=== PATIENT | female | born 1980 | race Two or more races ===

== ENCOUNTER 2019-10-10 14:32 | Outpatient (CLI) | payer OTHER ==
--- NOTE | 2019-10-11 22:20 | SLEEP CARE CONSULTATION ---
Information from patient questionnaire entered by Peg Soler. I have reviewed and concur with the information entered by Peg Soler. This document represents the service I personally performed and the decisions made by me, Whitley Tang MD, [facility]. History of Present Illness Service Date and Time: 10/10/2019 1432 Reason for Visit: New patient, Previously diagnosed sleep apnea, sleep apnea on CPAP therapy Chief Complaint: reports: Insomnia, Excessive daytime sleepiness, Observed pauses in breathing Duration of Symptoms: 16 years plus Usual bedtime: 12 am Time it takes to fall asleep: 1-2 hours Snores at night: Yes Observed to quit breathing while asleep: Yes Sleeps alone due to snoring: No Number of times waking at night: 2-4 Reasons for waking at night: reports: Choking, Pain, Other (discomfort) Toss, Turn, or Twitch while sleeping: Yes Recalls having dreams: Yes Usually gets out of bed at: 10 am Feels refreshed in the morning: No Morning headache: No Sleepy or fatigued during the day: Yes Ever fallen asleep while driving: Yes Takes day naps: No Dreams during day naps: Yes Prior sleep studies: Yes Year and Where: 2003 and 2000 - [facility] in [place] Additional HPI information: I had the pleasure of seeing Ms. Lopez today regarding obstructive sleep apnea-hypopnea. As you know, she is a 39 year old lady who was diagnosed with severe obstructive sleep apnea-hypopnea in 2000. She underwent uvulopalatopharyngoplasty and tonsillectomy. She was retested in 2003 and was told that she still had mild obstructive sleep apnea-hypopnea. She was prescribed a CPAP which she used consistently at first with good results but has not used it for at least a decade now. She continues to snore lightly. Her has not seen her quit breathing (he uses a CPAP too). She complains of insomnia where it takes her 1 2 hours to fall asleep at the beginning of the night. 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 Patient is and lives in [place]. Have you smoked in the past 12 months: Yes Cigarettes per day (20/pack): 5 Years of smokin Quit date: 09/06/19 Smoking Pack Years: 3.4 Alcohol use: Yes Alcohol amount and frequency: 2 drinks per week Caffeine use: Yes Caffeine amount and frequency: 1 coffee per day Family History Family history of sleep disordered breathing: Yes (father and grandfather) Allergies and Home Medications Drug allergies reviewed: Yes Home medication list reviewed: Yes Review of Systems Weight gain over past 5 years: 40 Cardiovascular: denies: high blood pressure, palpitations, chest pain, irregular heart rate or pulse, leg or foot swelling, have to sleep sitting up, other Respiratory: denies: shortness of breath, wheeze, sputum production, chronic cough, other Gastrointestinal: reports: other (constipation) Urinary: reports: urgency Neurological: denies: headaches, seizure, head trauma, disorientation, speech dysfunction, gait or balance problems, fainting or unconsciousness, other Psychiatric: reports: Attention Deficit Hyperactivity, anxiety, depression, mood disorder, other (PTSD, paranoia) Ear/Nose/Throat: reports: dry mouth/throat Endocrine: reports: thyroid disease, sluggishness, excessive thirst Musculoskeletal: reports: joint pain, neck pain, back pain, joint swelling, muscle pain or cramping Immunologic: denies: sneezing, rash, itching, allergies to food or environment, other Physical Exam Vital signs obtained and entered by: Detailed physical exam is deferred because the Coronavirus epidemic. Impression and Plan IMPRESSION: 1. Obstructive Sleep Apnea-Hypopnea Syndrome, as previously diagnosed, partially treated with uvulopalatopharyngoplasty. She continues to have symptoms of obstructive sleep apnea-hypopnea. She has gained 50 lbs since surgery. Suboxone, on the other hand, can cause central sleep apnea. She is willing to use CPAP again if necessary. Therefore, I will order another in-laboratory polysomnography. 2. Insomnia, due to in part to excessive time spent in bed of 10 hours (bedtime at midnight and wakeup time at 10 am). She also has underlying psychiatric disorders and chronic pain that can very well contribute to her insomnia. She was advised to not go to bed until 2 am. Plan: 1. Schedule polysomnography and return in 1 to 2 weeks after the study to discuss result and initiate therapy. 2. Maintain a regular wake up time and spend no more than 8 hours in bed at night. Avoid naps. 3. Avoid alcohol, sedative and muscle relaxant around bedtime. 4. Attempt to lose weight. Visit Type: In Office Time Spent with Patient (minutes): 15 Provider Statement: I spent 100% of the Face to Face Visit with the patient with greater than 50% spent counseling the patient and coordination of care.
== END 2019-10-10 14:33 | disposition home or self-care (01) ==
LOC: SC 14:32
PROVIDERS: ATTEND Internal Medicine Pulmonary Disease
DX: G47.33 Obstructive sleep apnea (adult) (pediatric) (principal); G47.00 Insomnia, unspecified; E66.9 Obesity, unspecified
CPT/HCPCS: 99204; 99212

== ENCOUNTER 2019-11-01 20:43 | Outpatient (CLI) | payer OTHER | END 2019-11-01 20:44 | disposition home or self-care (01) | LOC: SC 20:43 | PROVIDERS: ATTEND Internal Medicine Pulmonary Disease | DX: G47.33 Obstructive sleep apnea (adult) (pediatric) (principal) | CPT/HCPCS: 95810 ==

== ENCOUNTER 2019-11-21 16:32 | Outpatient (CLI) | payer OTHER ==
--- NOTE | 2019-11-21 15:09 | SLEEP CARE CONSULTATION ---
Information from patient questionnaire entered by Pge Soler. I have reviewed and concur with the information entered by Peg Soler. This document represents the service I personally performed and the decisions made by me, Whitley Tang MD, [facility]. History of Present Illness Service Date and Time: 11/21/2019 1500 Initial [place] Sleepiness Scale score: 8 (in 2019) Additional HPI information: To minimize the risk of COVID-19 exposure, the patient has requested and consented to this telephone visit. The patient also agrees to having her insurance billed. HPI: Ms. Lopez was called for follow up of the sleep study she had on 11/01/2019. The polysomnography showed that the patient had slightly reduced sleep efficiency due to sleep onset insomnia. The sleep architecture was abnormal for sleep fragmentation and lack of REM sleep. Respiratory monitoring showed severe obstructive sleep apnea-hypopnea (AHI = 35.0) associated with frequent arousals, oxyhemoglobin desaturation and mild hypoxia (maria r oxygen saturation of 82%). The respiratory events occurred almost exclusively during supine sleep (supine AHI = 100.3; non-supine = 3.92). Snore was moderate in inte nsity. There was no significant periodic leg movement of sleep. Cardiac rhythm was normal sinus rhythm without significant arrhythmia. No abnormal behavior (parasomnia) observed during the night. The patient was informed of these findings. I explained to her the pathophysiology behind obstructive sleep apnea. We then spent quite a bit of time discussing different treatment options. For mild obstructive sleep apnea, surgery and oral appliance are alternatives to nasal CPAP therapy but in moderate or severe cases, nasal CPAP is the most effective and reliable treatment. After some discussion, she opted to use CPAP again. The patient still has an old machine that is over 10 yeas old. She already had uvulopalatopharyngoplasty and tonsillectomy. Sleep Study - Results Type of Sleep Study: Polysomnography Prior sleep studies: Yes Year and Where: 2003 and 2000 - [facility] in [place] Allergies and Home Medications Drug allergies reviewed: Yes Home medication list reviewed: Yes Review of Systems Review of systems same as previous: Yes Impression and Plan IMPRESSION: 1. Obstructive Sleep Apnea-Hypopnea Syndrome, severe, associated with mild hypoxemia and sleep fragmentation. Obviously this is the cause of the patients symptoms of unrefreshed sleep, and excessive daytime sleepiness. As mentioned above, the patient will be return for a manual CPAP/BiPAP titration study. PLAN: 1. Schedule a manual CPAP/BiPAP titration study. 2. Attempt to lose weight. 3. Be careful when driving until her sleepiness resolves completely on nasal CPAP therapy. 4. Return for a follow up after the sleep study. Visit Type: Telehealth Video Video Type: REBIScan Patient Location: Home Location of Provider: Home Patient agrees and consents to this telehealth visit type: Yes Patient agrees to have their insurance billed: Yes Time Spent with Patient (minutes): 15 Provider Statement: I spent 100% of the Telehealth Video Call with the patient with greater than 50% spent counseling the patient and coordination of care.
== END 2019-11-21 16:33 | disposition home or self-care (01) ==
LOC: SC 16:32
PROVIDERS: ATTEND Internal Medicine Pulmonary Disease
DX: G47.33 Obstructive sleep apnea (adult) (pediatric) (principal)

== ENCOUNTER 2019-12-15 20:51 | Emergency (ER) | payer OTHER ==
--- NOTE | 2019-12-15 21:04 | ED Physician Documentation ---
PD HPI CHEST PAIN - Stated complaint Stated Complaint: CP - Chief complaint Chief Complaint: Cardiac - History obtained from History obtained from: Patient - History of Present Illness Timing - onset: How many days ago (4) Timing - details: Intermittant Pain level now: 2 Quality: Pain Location: Substernal Radiation: Other (does not radiate) Improved by: Nothing Worsened by: Other (no exacerbating factors) Associated symptoms: Shortness of air (mild), Palpitations. No: Diaphoresis, Vomiting, Cough Recently seen: Other (d/w PMD 4 days ago; symptoms thought to possibly be due to patient taking an extra dose of her levothyroxine at that time. She was also told to stop taking sulindac, chantrix, and BCP) - Additional information Additional information: c/o 4 days of substernal "chest discomfort and kind of an arrhythmia" (per patient). Symptoms started Wednesday but were mild and only at night, have become increasingly frequent during the week and episodic all day today. Episodes last minutes. Her description of the palpitations sound like skipped-beat sensation. There are no exacerbating nor ameliorating factors to these symptoms. Review of Systems Constitutional: reports: Fatigue. denies: Fever, Chills, Sweats Cardiac: reports: Chest pain / pressure, Palpitations. denies: Pedal edema, Calf pain Respiratory: reports: Dyspnea (mild, episodic). denies: Cough GI: reports: Reviewed and negative : denies: Now EGA Musculoskeletal: denies: Extremity swelling PD PAST MEDICAL HISTORY - Past Medical History Past Medical History: Yes Endocrine/Autoimmune: HyPOthyroidism - Past Surgical History Past Surgical History: Yes General: Other (thyroidectomy) HEENT: Tonsil/Adenoidectomy Other past surgical history: UPPP - Present Medications Home Medications: Ambulatory Orders Medication Instructions Recorded Confirmed Aripiprazole [Abilify] 2 mg PO DAILY 12/15/19 12/15/19 Buprenorphine HCl/Naloxone HCl 1 film SL DAILY 12/15/19 12/15/19 [Buprenorp-Nalox 8-2 mg Sl Film] Gabapentin 600 mg PO TID 12/15/19 12/15/19 Hydroxychloroquine Sulfate 200 mg PO DAILY 12/15/19 12/15/19 LORazepam [Ativan] 0.5 mg PO DAILY 12/15/19 12/15/19 Levothyroxine Sodium 50 mcg PO DAILY 12/15/19 12/15/19 [place] Carbonate 300 mg PO DAILY 12/15/19 12/15/19 Modafinil [Provigil] 100 mg PO DAILY 12/15/19 12/15/19 Prazosin HCl 2 mg PO DAILY 12/15/19 12/15/19 Propranolol HCl 20 mg PO DAILY 12/15/19 12/15/19 Sertraline HCl 100 mg PO DAILY 12/15/19 12/15/19 Tizanidine HCl 4 mg PO DAILY 12/15/19 12/15/19 Trazodone HCl 50 mg PO DAILY 12/15/19 12/15/19 - Allergies Allergies/Adverse Reactions: Allergies Allergy/AdvReac Type Severity Reaction Status Date / Time Penicillins Allergy Unknown Verified 12/15/19 21:03 - Living Situation Living Arrangement: reports: At home PD ED PE NORMAL - Vitals Vital signs reviewed: Yes - General General: Alert and oriented X 3, No acute distress, Well developed/nourished - HEENT HEENT: Moist mucous membranes - Neck Neck: Supple, no meningeal sign - Cardiac Cardiac: RRR, No murmur, No gallop, No rub - Respiratory Respiratory: No respiratory distress, Clear bilaterally - Abdomen Abdomen: Soft, Non tender - Derm Derm: Normal color, Warm and dry - Extremities Extremities: No edema Results - Vitals Vitals: Vital Signs - 24 hr 12/15/19 12/15/19 12/15/19 21:00 21:20 21:45 Temperature 36.2 C L Heart Rate 80 74 66 Respiratory 18 14 20 Rate Blood Pressure 125/85 H 126/79 121/65 O2 Saturation 100 100 100 12/15/19 12/15/19 12/15/19 22:12 22:35 23:50 Temperature Heart Rate 73 73 68 Respiratory 12 14 Rate Blood Pressure 132/87 H 138/89 H O2 Saturation 100 100 12/16/19 12/16/19 12/16/19 00:09 01:30 01:50 Temperature 36.7 C 36.7 C Heart Rate 69 75 78 Respiratory 15 16 17 Rate Blood Pressure 108/92 H 113/71 106/69 O2 Saturation 100 99 99 Oxygen O2 Source Room air - EKG (time done) No standard instances Rate: Rate (enter#) (66) Rhythm: NSR [place]: Normal Intervals: Normal VT QRS: Normal, Low voltage Ischemia: Normal ST segments - Labs Labs: Laboratory Tests 12/15/19 12/15/19 12/15/19 21:18 21:18 21:18 WBC 7.3 RBC 4.35 Hgb 12.4 Hct 38.4 MCV 88.3 MCH 28.5 MCHC 32.3 RDW 12.8 Plt Count 202 MPV 11.5 H Neut # (Auto) 4.4 Lymph # (Auto) 1.7 Lamar # (Auto) 0.6 Eos # (Auto) 0.4 Baso # (Auto) 0.0 Absolute Nucleated RBC 0.00 Nucleated RBC % 0.0 Sodium 138 Potassium 4.0 Chloride 99 L Carbon Dioxide 29 Anion Gap 10.0 BUN 12 Creatinine 1.2 H Estimated GFR (MDRD) 51 L Glucose 99 Calcium 9.0 Total Bilirubin 0.4 AST 19 ALT 21 Alkaline Phosphatase 37 L Troponin I High Sens 3.0 Total Protein 6.9 Albumin 3.5 Globulin 3.4 Albumin/Globulin Ratio 1.0 Lipase 47 TSH 12/15/19 21:18 WBC RBC Hgb Hct MCV MCH MCHC RDW Plt Count MPV Neut # (Auto) Lymph # (Auto) Lamar # (Auto) Eos # (Auto) Baso # (Auto) Absolute Nucleated RBC Nucleated RBC % Sodium Potassium Chloride Carbon Dioxide Anion Gap BUN Creatinine Estimated GFR (MDRD) Glucose Calcium Total Bilirubin AST ALT Alkaline Phosphatase Troponin I High Sens Total Protein Albumin Globulin Albumin/Globulin Ratio Lipase TSH 1.94 - Rads (name of study) chest xray Radiology: Prelim report reviewed, See rad report CT chest w/contrast (PE study) Radiology: Prelim report reviewed, See rad report PD MEDICAL DECISION MAKING - ED course Complexity details: reviewed results, re-evaluated patient, considered diffe rential, d/w patient ED course: On reevaluation, results reviewed with patient. It was on reevaluation that I ascertained from patient that she has antiphospholipid antibodies, possibly factor V deficiency; she says she has been told she is at risk of blood clots. She is not tachycardic, but she is on propranolol. Because of this information, CT chest with contrast (PE study) ordered. This study was negative for PE; small bilateral pleural effusions and trace pericardial effusion noted Departure - Departure Disposition: 01 Home, Self Care Clinical Impression: Chest pain Condition: Good Instructions: ED Chest Pain Atypical Unkn Cause Follow-Up: TENNILLE WANG PA-C [Primary Care Provider] - Discharge Date/Time: 12/16/19 01:54
[2019-12-15 21:25] LABS: BASOPHILS % (AUTO) 0.6 %; EOSINOPHILS # (AUTO) 0.4 10^3/uL (0.0-0.7); EOSINOPHILS % (AUTO) 6.1 %; HGB - HEMOGLOBIN 12.4 g/dL (12.0-16.0); LYMPHOCYTES # (AUTO) 1.7 10^3/uL (1.5-3.5); LYMPHOCYTES % (AUTO) 23.3 %; MEAN CORPUSCULAR HEMOGLOBIN 28.5 pg (27.0-31.0); MEAN CORPUSCULAR HGB CONC 32.3 g/dL (32.0-36.0); MEAN CORPUSCULAR VOLUME 88.3 fL (81.0-99.0); MEAN PLATELET VOLUME 11.5 fL (7.9-10.8); MONOCYTES # (AUTO) 0.6 10^3/uL (0.0-1.0); MONOCYTES % (AUTO) 8.4 %; NEUTROPHILS # (AUTO) 4.4 10^3/uL (1.5-6.6); PLT - PLATELET COUNT 202 10^3/uL (130-450); RED BLOOD COUNT 4.35 10^6/uL (4.20-5.40); RED CELL DISTRIBUTION WIDTH 12.8 % (12.0-15.0); WHITE BLOOD COUNT 7.3 x10^3/uL (4.8-10.8)
[2019-12-15 21:38] LABS: ALBUMIN 3.5 g/dL (3.2-5.5); BILIRUBIN,TOTAL 0.4 mg/dL (0.2-1.0); CREATININE 1.2 mg/dL (0.4-1.0); TOTAL PROTEIN 6.9 g/dL (6.7-8.2)
--- NOTE | 2019-12-15 21:41 | XRAY Report ---
PROCEDURE: Chest 2 View X-Ray INDICATIONS: chest pain TECHNIQUE: 2 view(s) of the chest. COMPARISON: None. FINDINGS: Surgical changes and devices: None. Lungs and pleura: No pleural effusions or pneumothorax. Lungs are clear. Mediastinum: Mediastinal contours are normal. Heart size is normal. Bones and chest wall: No suspicious bony abnormalities. Soft tissues appear unremarkable. IMPRESSION: No acute cardiopulmonary findings. Reviewed by: Tara Elkins MD on 12/15/2019 9:40 PM PDT Approved by: Tara Elkins MD on 12/15/2019 9:40 PM PDT Station ID: [id number]
[2019-12-15] MEDS ORDERED: LORazepam 2 MG/ML VIAL IVP STA (22:50)
[2019-12-15] MEDS ORDERED: IOVERSOL 320 100 ML VIAL IVP ONE (23:20)
[2019-12-16] MEDS ORDERED: IOVERSOL 320 100 ML VIAL IVP ONE
[2019-12-16 01:55] VITALS: BP 106/69
--- NOTE | 2019-12-16 07:50 | CT Report ---
PROCEDURE: CHEST W/WO INDICATIONS: chest pain CONTRAST: IV CONTRAST: Optiray 320 ml: 75 PO CONTRAST: *NO PO CONTRAST TECHNIQUE: Noncontrast 5 mm thick sections acquired from the pulmonary apices to the posterior costophrenic angl es. After the administration of intravenous contrast, 5 mm thick sections acquired from the pulmonar y apices to the posterior costophrenic angles. 7 mm thick coronal MIP reformats were acquired. For radiation dose reduction, the following was used: automated exposure control, adjustment of mA and/o r kV according to patient size. COMPARISON: Chest radiograph from earlier same day. FINDINGS: Image quality: Excellent. Lungs and pleura: No acute air space opacities. Small bilateral pleural effusions with associated c ompressive atelectasis. No pneumothorax seen. Central and peripheral airways are patent and normal in caliber. Mediastinum: Heart size is normal. Trace pericardial effusion likely physiologic. No mediastinal or hilar adenopathy by size criteria. Thoracic aorta and central pulmonary arteries are normal in size . Esophagus is normal in caliber. No hiatal hernia. Bones and chest wall: No suspicious bony lesions. No acute vertebral body compression fractures. N o axillary or supraclavicular adenopathy by size criteria. Thyroid gland is unremarkable. Abdomen: Visualized upper abdominal solid organs appear normal. Upper abdominal bowel loops are nor mal in caliber. IMPRESSION: 1. No acute pulmonary emboli. No evidence for acute right-sided heart strain. 2. Trace pericardial effusion, likely physiologic. 3. Very small bilateral pleural effusions with associated atelectasis. No significant discrepancy with initial interpretation by overnight radiologist. Reviewed by: Ben Trivedi MD on 12/16/2019 7:49 AM PDT Approved by: Ben Trivedi MD on 12/16/2019 7:49 AM PDT Station ID: [id number]
== END 2019-12-16 01:54 | disposition home or self-care (01) ==
LOC: ED 20:51
DX: R07.89 Other chest pain (principal); R00.2 Palpitations
CPT/HCPCS: 36415; 71046; 71270; 83690; 84484; 93005; 96374; 99284; J2060; Q9967; 80053; 84443; 85025

== ENCOUNTER 2020-05-27 13:11 | Outpatient (CLI) | payer OTHER ==
--- NOTE | 2020-05-27 14:10 | SLEEP CARE CONSULTATION ---
Information from patient questionnaire entered by Peg Soler. I have reviewed and concur with the information entered by Peg Soler. This document represents the service I personally performed and the decisions made by me, Whitley Tang MD, [facility]. History of Present Illness Service Date and Time: 05/27/2020 1311 Previous diagnosis: Severe, Obstructive Sleep Apnea-Hypopnea Syndrome AHI: 35.0 (in 2019) Reason for follow up: other (7 month to discuss medication and CPAP) Prior sleep studies: Yes Year and Where: 2019 - [facility]; 2003 and 2000 - [facility] in [place] Type of Sleep Study: Polysomnography HPI additional information: HPI: To minimize the risk of COVID-19 exposure, the patient has requested and consented to this telephone visit. The patient also agrees to having her insurance billed. Ms. Lopez was diagnosed to have severe obstructive sleep apnea-hypopnea synd frannie was scheduled for a manual CPAP/BiPAP titration study which never happened.. She was diagnosed with obstructive sleep apnea-hypopnea long time ago and had uvulopalatopharyngoplasty. She continues to have mild obstructive sleep apnea-hypopnea after the surgery. She is willing to try CPAP again but is not sure if she could tolerate it due to her underlying psychiatric disorders. She is interested in the Inspire therapy (hypoglossal nerve stimulation). Subjective Initial [place] Sleepiness Scale score: 8 (in 2019) Allergies and Home Medications Drug allergies reviewed: Yes Home medication list reviewed: Yes Review of Systems Review of systems same as previous: Yes Physical Exam Height: 5 ft 9 in Impression and Plan IMPRESSION: 1. Obstructive Sleep Apnea-Hypopnea Syndrome, severe, associated with mild hypoxemia and sleep fragmentation. This is despite the uvulopalatopharyngoplasty she had long time ago. The sleep-disordered breathing could have contributed to her excessive daytime sleepiness. The patient is taking modafinil 100 mg a day prescribed by her psychiatrist. The medication is indicated in patients with residual excessive daytime sleepiness on effective CPAP therapy. I informed her that I can prescribe the medication but only in conjunction with adequate CPAP usage. This is because the medication is not meant to be use as a standalone treatment of the sleep-disordered breathing. The patient would also like to explore the Inspire therapy (hypoglossal nerve stimulation). PLAN: 1. Prescription made for an autoCPAP, heated humidifier, and related supplies. The pressure will be set generically at 5 [address] Adriel Andres, ENT in [place] to further discuss the Inspire Therapy. 3. Try to lose weight. 4. Return for follow up after one month of using the CPAP. Visit Type: Telehealth Video Video Type: VSee Time Spent with Patient (minutes): 20 Provider Statement: I spent 100% of the Telehealth Video Call with the patient with greater than 50% spent counseling the patient and coordination of care.
== END 2020-05-27 13:12 | disposition home or self-care (01) ==
LOC: SC 13:11
PROVIDERS: ATTEND Internal Medicine Pulmonary Disease
DX: G47.33 Obstructive sleep apnea (adult) (pediatric) (principal)

== ENCOUNTER 2021-07-21 14:41 | Observation (INO) | payer OTHER ==
[2021-07-21] MEDS ORDERED: SODIUM CHLORIDE 0.9% 1,000 ML IV STA (14:51)
--- NOTE | 2021-07-21 14:55 | ED Physician Documentation ---
History of Present Illness - Stated complaint Stated Complaint: UNCONCIOUS - Additonal information Additional information: 41-year-old female was brought to the emergency department for evaluation of altered mental status. Her friend was going to visit her today and found her in her home unconscious. He reportedly did a post office manager carry for her to the car and brought her to the ER. She has been able to stand from the wheelchair to get into the bed but is otherwise nonverbal. In brief chart review I do see that she has previously been prescribed Narcan. Her friend at the bedside states he spoke with her on the phone yesterday and she was upset and has been depressed. She is apparently going through a divorce. He is uncertain if she would self-harm. He does not think she has been taking opiates. In brief chart review I do see that she has a history of being on Wellbutrin, lithium as well as buprenorphine in the past. On initial presentation to the emergency department the patient is a Glascow of 9. She was administered a dose of Narcan with resultant spontaneous eye opening. She remains nonverbal. Given mild improvement in mental status we will repeat the dose of Narcan Review of Systems Unable to obtain: AMS PD PAST MEDICAL HISTORY - Past Medical History Endocrine/Autoimmune: HyPOthyroidism Psych: Depression, Anxiety - Past Surgical History Past Surgical History: Yes General: Other HEENT: Tonsil/Adenoidectomy - Present Medications Home Medications: Ambulatory Orders Medication Instructions Recorded Confirmed Levothyroxine Sodium [Synthroid] 200 mcg PO QDAC 07/21/21 Sertraline [Zoloft] 50 mg PO DAILY 07/21/21 Trazodone HCl 100 mg PO QPM 07/21/21 buPROPion HCL [Bupropion Xl] 150 mg PO DAILY 07/21/21 cloNIDine [Catapres] 0.2 mg PO QPM 07/21/21 - Allergies Allergies/Adverse Reactions: Allergies Allergy/AdvReac Type Severity Reaction Status Date / Time Penicillins Allergy Unknown Verified 07/21/21 14:57 - Social History Does the pt smoke?: No Smoking Status: Never smoker Does the pt drink ETOH?: No Does the pt have substance abuse?: No - Immunizations Immunizations are current?: Yes - POLST Patient has POLST: No PD ED PE EXPANDED - General General: Lethargic - HEENT HEENT: Other (Pupils are pinpoint.) - Cardiac Cardiac: Regular Rate, Radial strong equal, Pedal strong equal, Cap refill < 2 sec. No: Murmur Present - Respiratory Respiratory: Clear to ausultation sherwin. No: Distress, Labored - Abdomen Abdomen: Normal Bowel sounds. No: Tender to palpation - Derm Derm: Normal color, Warm and dry, Rash - Extremities Extremities: Normal. No: Deformity, Tenderness - Neuro Neuro: Obtunded - GCS Eye Opening: To Pain Motor: Localizes to Pain Verbal: Incomprehensible Total: 9 Results - Vitals Vitals: Vital Signs - 24 hr 07/21/21 07/21/21 07/21/21 14:57 15:15 16:00 Temperature 36.5 C Heart Rate 80 85 81 Respiratory 18 18 21 Rate Blood Pressure 150/100 H 146/97 H 135/96 H O2 Saturation 99 100 100 07/21/21 07/21/21 07/21/21 16:30 17:00 17:30 Temperature Heart Rate 82 84 93 Respiratory 18 18 19 Rate Blood Pressure 119/96 H 144/98 H 142/101 H O2 Saturation 100 100 98 07/21/21 07/21/21 07/21/21 18:00 18:30 19:00 Temperature Heart Rate 77 94 82 Respiratory 22 21 12 Rate Blood Pressure 145/102 H 152/101 H 152/105 H O2 Saturation 100 100 100 07/21/21 19:30 Temperature Heart Rate 82 Respiratory 14 Rate Blood Pressure 138/95 H O2 Saturation 100 Oxygen O2 Source Room air - EKG (time done) 1509 Rate: Rate (enter#) (82) Rhythm: NSR [place]: Normal Intervals: Normal [place] QRS: Normal Ischemia: Normal ST segments Compare to prior EKG: Old EKG unavailable Computer interpretation: Agree with computer - Labs Labs: Laboratory Tests 07/21/21 07/21/21 07/21/21 14:59 14:59 14:59 WBC 6.2 RBC 4.90 Hgb 13.7 Hct 40.7 MCV 83.1 MCH 28.0 MCHC 33.7 RDW 13.6 Plt Count 237 MPV 10.5 Neut # (Auto) 4.5 Lymph # (Auto) 1.4 L [place] # (Auto) 0.3 Eos # (Auto) 0.1 Baso # (Auto) 0.0 Absolute Nucleated RBC 0.00 Nucleated RBC % 0.0 Sodium 134 L Potassium 3.7 Chloride 99 L Carbon Dioxide 24 Anion Gap 11.0 BUN 12 Creatinine 1.0 Estimated GFR (MDRD) 62 L Glucose 75 Calcium 8.6 Total Bilirubin 0.6 AST 24 ALT 18 Alkaline Phosphatase 45 Troponin I High Sens 3.1 B-Natriuretic Peptide Total Protein 7.4 Albumin 4.0 Globulin 3.4 Albumin/Globulin Ratio 1.2 Lipase 39 TSH Thyroxine (T4) Urine Color Urine Clarity Urine pH Ur Specific [place] Urine Protein Urine Glucose (UA) Urine Ketones Urine Occult Blood Urine Nitrite Urine Bilirubin Urine Urobilinogen Ur Leukocyte Esterase Ur Microscopic Review Urine Culture Comments Urine HCG, Qual Nasal Adenovirus (PCR) Nasal B. parapertussis DNA (PCR) Nasal Coronavir 229E PCR Nasal Coronavir HKU1 PCR Nasal Coronavir NL63 PCR Nasal Coronavir OC43 PCR Nasal Enterovir/Rhinovir PCR Nasal Influenza B PCR Nasal Influenza A PCR Nasal Parainfluen 1 PCR Nasal Parainfluen 2 PCR Nasal Parainfluen 3 PCR Nasal Parainfluen 4 PCR Nasal RSV (PCR) Nasal B.pertussis DNA PCR Nasal C.pneumoniae (PCR) Navid Human Metapneumo PCR Nasal M.pneumoniae (PCR) Nasal SARS-CoV-2 (PCR) Last Dose Date Last Dose Time Salicylates < 6.0 Urine Opiates Screen Ur Oxycodone Screen Urine Methadone Screen Ur Propoxyphene Screen Acetaminophen < 10 L Ur Barbiturates Screen Ur Tricyclics Screen Ur Phencyclidine Scrn Ur Amphetamine Screen U Methamphetamines Scrn U Benzodiazepines Scrn [place] Urine Cocaine Screen U Cannabinoids Screen Ethyl Alcohol < 5.0 07/21/21 07/21/21 07/21/21 14:59 14:59 14:59 WBC RBC Hgb Hct MCV MCH MCHC RDW Plt Count MPV Neut # (Auto) Lymph # (Auto) [place] # (Auto) Eos # (Auto) Baso # (Auto) Absolute Nucleated RBC Nucleated RBC % Sodium Potassium Chloride Carbon Dioxide Anion Gap BUN Creatinine Estimated GFR (MDRD) Glucose Calcium Total Bilirubin AST ALT Alkaline Phosphatase Troponin I High Sens B-Natriuretic Peptide 45 Total Protein Albumin Globulin Albumin/Globulin Ratio Lipase TSH 7.09 H Thyroxine (T4) Urine Color Urine Clarity Urine pH Ur Specific [place] Urine Protein Urine Glucose (UA) Urine Ketones Urine Occult Blood Urine Nitrite Urine Bilirubin Urine Urobilinogen Ur Leukocyte Esterase Ur Microscopic Review Urine Culture Comments Urine HCG, Qual Nasal Adenovirus (PCR) Nasal B. parapertussis DNA (PCR) Nasal Coronavir 229E PCR Nasal Coronavir HKU1 PCR Nasal Coronavir NL63 PCR Nasal Coronavir OC43 PCR Nasal Enterovir/Rhinovir PCR Nasal Influenza B PCR Nasal Influenza A PCR Nasal Parainfluen 1 PCR Nasal Parainfluen 2 PCR Nasal Parainfluen 3 PCR Nasal Parainfluen 4 PCR Nasal RSV (PCR) Nasal B.pertussis DNA PCR Nasal C.pneumoniae (PCR) Navid Human Metapneumo PCR Nasal M.pneumoniae (PCR) Nasal SARS-CoV-2 (PCR) Last Dose Date Not Reportable Last Dose Time Not Reportable Salicylates Urine Opiates Screen Ur Oxycodone Screen Urine Methadone Screen Ur Propoxyphene Screen Acetaminophen Ur Barbiturates Screen Ur Tricyclics Screen Ur Phencyclidine Scrn Ur Amphetamine Screen U Methamphetamines Scrn U Benzodiazepines Scrn [place] 0.21 Urine Cocaine Screen U Cannabinoids Screen Ethyl Alcohol 07/21/21 07/21/21 07/21/21 14:59 15:21 16:25 WBC RBC Hgb Hct MCV MCH MCHC RDW Plt Count MPV Neut # (Auto) Lymph # (Auto) [place] # (Auto) Eos # (Auto) Baso # (Auto) Absolute Nucleated RBC Nucleated RBC % Sodium Potassium Chloride Carbon Dioxide Anion Gap BUN Creatinine Estimated GFR (MDRD) Glucose Calcium Total Bilirubin AST ALT Alkaline Phosphatase Troponin I High Sens B-Natriuretic Peptide Total Protein Albumin Globulin Albumin/Globulin Ratio Lipase TSH Thyroxine (T4) 11.87 Urine Color YELLOW Urine Clarity CLEAR Urine pH 6.5 Ur Specific [place] 1.010 Urine Protein NEGATIVE Urine Glucose (UA) NEGATIVE Urine Ketones 15 H Urine Occult Blood NEGATIVE Urine Nitrite NEGATIVE Urine Bilirubin NEGATIVE Urine Urobilinogen 0.2 (NORMAL) Ur Leukocyte Esterase NEGATIVE Ur Microscopic Review NOT INDICATED Urine Culture Comments NOT INDICATED Urine HCG, Qual NEGATIVE Nasal Adenovirus (PCR) NOT DETECTED Nasal B. parapertussis DNA (PCR) NOT DETECTED Nasal Coronavir 229E PCR NOT DETECTED Nasal Coronavir HKU1 PCR DETECTED A Nasal Coronavir NL63 PCR NOT DETECTED Nasal Coronavir OC43 PCR NOT DETECTED Nasal Enterovir/Rhinovir PCR NOT DETECTED Nasal Influenza B PCR NOT DETECTED Nasal Influenza A PCR NOT DETECTED Nasal Parainfluen 1 PCR NOT DETECTED Nasal Parainfluen 2 PCR NOT DETECTED Nasal Parainfluen 3 PCR NOT DETECTED Nasal Parainfluen 4 PCR NOT DETECTED Nasal RSV (PCR) NOT DETECTED Nasal B.pertussis DNA PCR NOT DETECTED Nasal C.pneumoniae (PCR) NOT DETECTED Navid Human Metapneumo PCR NOT DETECTED Nasal M.pneumoniae (PCR) NOT DETECTED Nasal SARS-CoV-2 (PCR) NOT DETECTED Last Dose Date Last Dose Time Salicylates Urine Opiates Screen NEGATIVE Ur Oxycodone Screen NEGATIVE Urine Methadone Screen NEGATIVE Ur Propoxyphene Screen NEGATIVE Acetaminophen Ur Barbiturates Screen NEGATIVE Ur Tricyclics Screen NEGATIVE Ur Phencyclidine Scrn NEGATIVE Ur Amphetamine Screen POSITIVE H U Methamphetamines Scrn POSITIVE H U Benzodiazepines Scrn NEGATIVE [place] Urine Cocaine Screen NEGATIVE U Cannabinoids Screen NEGATIVE Ethyl Alcohol - Rads (name of study) CXR Radiology: Final report received (Borderline cardiomegaly with diffuse interstitial prominence involving the right hemothorax and left mid and lower lung zones. No focal consolidation. Findings may represent pulmonary edema versus infectious inflammatory process. Hypersensitivity pneumonitis may have a similar appearance ) CT head Radiology: Final report received (No acute intracranial abnormality) PD MEDICAL DECISION MAKING - ED course Complexity details: reviewed results, re-evaluated patient, considered differential, d/w patient ED course: 41-year-old female was brought to the emergency department by her friend for evaluation of altered mental status. On presentation she has a Glascow of 9 localizing pain but quite somnolent. Initially she was administered Narcan twice and though it did improve her mental status mildly it did not absolve her of her change in mentation. The friend brought her to the emergency department reported he went to her house to spend the day with her when she he found her somnolent. He firemen carried her to the car and then she comes to the ER. CT of the head is negative. Her urine drug screen is positive for amphetamine and methamphetamine. A chest x-ray suggest cardiomegaly and there is concern that she could have volume overload versus an early pneumonitis on x-ray. Her respirations are unlabored and she is generally clear to auscultation. There is no leukocytosis or hypoxia. A BNP is 45 and she does not appear volume overloaded. This was discussed admitting hospitalist Dr. Varela who has agreed to admit the patient for further evaluation of her altered mentation. Social work consult has been placed. The patient's has called and spoken briefly with the nursing staff and is aware that she is here at [facility]. 1700: I have spoken with Dr. Varela who has agreed to admit the patient fro further evaluation of her AMS. 1999: On reevaluation the patient is much more alert, moving voluntarily and requesting something to drink. GCS now 15. She remains nonfocal. Orders for admission are pending. Departure - Departure Disposition: 66 [facility] DC/Xfer Clinical Impression: Methamphetamine use Altered mental status Qualifiers: Altered mental status type: coma Coma depth: Sugey coma 9-12 Coma timing: at arrival to emergency department Qualified Code(s): R40.2422 - [place] coma scale score 9-12, at arrival to emergency department Discharge Date/Time: 07/21/21 20:17
[2021-07-21] MEDS ORDERED: NALOXONE 0.4 MG/ML VIAL IVP STA (14:59)
[2021-07-21] MEDS ORDERED: ONDANSETRON 4 MG/2 ML VIAL IVP STA (15:00)
[2021-07-21] MEDS ORDERED: NALOXONE 0.4 MG/ML VIAL ONE (15:00)
[2021-07-21 15:08] LABS: BASOPHILS % (AUTO) 0.6 %; EOSINOPHILS # (AUTO) 0.1 10^3/uL (0.0-0.7); EOSINOPHILS % (AUTO) 0.8 %; HCT - HEMATOCRIT 40.7 % (37.0-47.0); HGB - HEMOGLOBIN 13.7 g/dL (12.0-16.0); LYMPHOCYTES # (AUTO) 1.4 10^3/uL (1.5-3.5); LYMPHOCYTES % (AUTO) 21.7 %; MEAN CORPUSCULAR HGB CONC 33.7 g/dL (32.0-36.0); MEAN CORPUSCULAR VOLUME 83.1 fL (81.0-99.0); MEAN PLATELET VOLUME 10.5 fL (7.9-10.8); MONOCYTES # (AUTO) 0.3 10^3/uL (0.0-1.0); MONOCYTES % (AUTO) 4.2 %; NEUTROPHILS # (AUTO) 4.5 10^3/uL (1.5-6.6); NEUTROPHILS % (AUTO) 72.4 %; PLT - PLATELET COUNT 237 10^3/uL (130-450); RED CELL DISTRIBUTION WIDTH 13.6 % (12.0-15.0); WHITE BLOOD COUNT 6.2 x10^3/uL (4.8-10.8)
--- NOTE | 2021-07-21 15:14 | XRAY Report ---
PROCEDURE: Chest 1 View X-Ray INDICATIONS: AMS TECHNIQUE: One view of the chest was acquired. COMPARISON: 12/15/2019 FINDINGS: Surgical changes and devices: None. Lungs and pleura: Diffuse interstitial prominence more pronounced on the right. This involves nearly the entire right hemithorax. No focal consolidation. Mild loss of vascular distinctness. No pneumotho rax. Mediastinum: Mediastinal contours appear normal. Heart size is borderline enlarged. Bones and chest wall: No suspicious bony lesions. Overlying soft tissues appear unremarkable. IMPRESSION: Borderline cardiomegaly with diffuse interstitial prominence involving the right hemithorax and left mid and lower lung zones. No focal consolidation. Findings may represent pulmonary edema versus an in fectious/inflammatory process. Hypersensitivity pneumonitis may have a similar appearance if clinical ly appropriate. Reviewed by: Ben Trivedi MD on 07/21/2021 3:13 PM PDT Approved by: Ben Trivedi MD on 07/21/2021 3:13 PM PDT Station ID: [id number]
[2021-07-21 15:22] LABS: ACETAMINOPHEN < 10 ug/mL (10-30); ALBUMIN/GLOBULIN RATIO 1.2 (1.0-2.2); ALKALINE PHOSPHATASE 45 IU/L (42-121); ALT ALANINE AMINOTRANSFERASE 18 IU/L (10-60); AST ASPARTATE AMINOTRANSFERASE 24 IU/L (10-42); BILIRUBIN,TOTAL 0.6 mg/dL (0.2-1.0); BUN - BLOOD UREA NITROGEN 12 mg/dL (6-20); CALCIUM 8.6 mg/dL (8.5-10.3); CARBON DIOXIDE - CO2 24 mmol/L (21-32); CHLORIDE 99 mmol/L (101-111); ETOH - ETHANOL < 5.0 mg/dL; GFR - MDRD 62 (>89); GLUCOSE 75 mg/dL (70-100); LIPASE 39 U/L (22-51); POTASSIUM 3.7 mmol/L (3.5-5.0); SALICYLATE < 6.0 mg/dL; SODIUM 134 mmol/L (135-145); TOTAL PROTEIN 7.4 g/dL (6.7-8.2)
[2021-07-21 15:23] LABS: LITHIUM 0.21 mmol/L
[2021-07-21 15:25] LABS: MUDS CUTOFF CONCENTRATIONS CUTOFF CONC BELOW:
[2021-07-21 15:31] LABS: BILIRUBIN,URINE NEGATIVE (NEGATIVE); GLUCOSE, URINE (UA) NEGATIVE (NEGATIVE); KETONES,URINE (UA) 15 mg/dL (NEGATIVE); LEUKOCYTE ESTERASE, URINE NEGATIVE (NEGATIVE); NITRITE,URINE NEGATIVE (NEGATIVE); OCCULT BLOOD,URINE NEGATIVE (NEGATIVE); PH,URINE 6.5 PH (5.0-7.5); PROTEIN,URINE NEGATIVE (NEGATIVE); UROBILINOGEN,URINE 0.2 (NORMAL) E.U./dL (NORMAL)
[2021-07-21 15:33] LABS: CLARITY,URINE CLEAR (CLEAR); HCG UR QUAL NEGATIVE
--- OUTSIDE RECORDS SUMMARY | 2021-07-21 15:34 | EXTERNAL MEDICAL SUMMARY RPT | Continuity of Care Document ---
:1980 Author Organization [facility] Address [address] [place] [address] Phone Allergies No information. Encounters No information. Medications No information. Problems date description facility [id number] abd pressure,neck pain [facility] [id number] Nausea [facility] [id number] Headache [facility] [id number] EMS [facility] [id number] Abdominal Pain [facility] [id number] ear aches [facility] Results No information.
[2021-07-21 15:57] LABS: AMPHETAMINE SCREEN,URINE POSITIVE (NEGATIVE); BARBITURATE SCREEN,UR NEGATIVE (NEGATIVE); BENZODIAZEPINES SCREEN, URINE NEGATIVE (NEGATIVE); COCAINE SCREEN URINE NEGATIVE (NEGATIVE); METHADONE SCREEN, URINE NEGATIVE (NEGATIVE); METHAMPHETAMINES SCREEN, URINE POSITIVE (NEGATIVE); OPIATE SCREEN, URINE NEGATIVE (NEGATIVE); OXYCODONE SCREEN, URINE NEGATIVE (NEGATIVE); PROPOXYPHENE SCREEN, URINE NEGATIVE (NEGATIVE); THC CANNABINOID SCREEN, URINE NEGATIVE (NEGATIVE); TRICYCLIC ANTIDEPRESSANT,URINE NEGATIVE (NEGATIVE)
--- NOTE | 2021-07-21 16:05 | CT Report ---
PROCEDURE: HEAD WO INDICATIONS: AMS TECHNIQUE: Noncontrast 4.5 mm thick angled axial sections acquired from the foramen magnum to the vertex. For r adiation dose reduction, the following was used: automated exposure control, adjustment of mA and/or kV according to patient size. COMPARISON: None. FINDINGS: Image quality: Images are mildly degraded by patient motion despite repeat sequences being acquired. Diagnostic information is obtained. CSF spaces: Basal cisterns are patent. No extra-axial fluid collections. Ventricles are normal in size and shape. Brain: No midline shift. No intracranial masses or hemorrhage. [place]-white matter interface is norm al. Skull and face: Calvarium and visualized facial bones are intact, without suspicious lesions. Sinuses: Mild partial opacification of the right maxillary sinus. The remaining visualized paranasal sinuses and the mastoid air cells are clear. IMPRESSION: No acute intracranial abnormality. Reviewed by: Dinesh Medley MD on 07/21/2021 4:04 PM PDT Approved by: Dinesh Medley MD on 07/21/2021 4:04 PM PDT Station ID: [id number]
[2021-07-21 17:28] LABS: B. PARAPERTUSSIS- RESP PCR PAN NOT DETECTED; B. PERTUSSIS- RESP PCR PANEL NOT DETECTED; C. PNEUMONIAE- RESP PCR PANEL NOT DETECTED; CORONAVIRUS 229E-RESP PCR NOT DETECTED; CORONAVIRUS HKU1-RESP PCR DETECTED; CORONAVIRUS NL63-RESP PCR NOT DETECTED; CORONAVIRUS OC43-RESP PCR NOT DETECTED; HUMAN METAPNEUMOVIRUS NOT DETECTED; INFLUENZA A- RESP PCR PANEL NOT DETECTED; INFLUENZA B - RESP PCR PANEL NOT DETECTED; M. PNEUMONIAE- RESP PCR PANEL NOT DETECTED; PARAINFLUENZA VIRUS 1 NOT DETECTED; PARAINFLUENZA VIRUS 2 NOT DETECTED; PARAINFLUENZA VIRUS 3 NOT DETECTED; PARAINFLUENZA VIRUS 4 NOT DETECTED; RHINOVIRUS/ENTEROVIRUS NOT DETECTED; RSV- RESP PCR PANEL NOT DETECTED; SARS-CoV-2 -RESP PCR PANEL NOT DETECTED
[2021-07-21] MEDS ORDERED: ONDANSETRON ODT 4 MG TABLET TL PRN (19:51)
[2021-07-21] MEDS ORDERED: SODIUM CHLORIDE FLUSH 0.9% 10 ML SYRINGE IVP PRN (19:51)
[2021-07-21] MEDS ORDERED: SODIUM CHLORIDE 0.9% 1,000 ML IV SCH (20:00)
--- NOTE | 2021-07-21 20:45 | HISTORY & PHYSICAL EXAMINATION ---
Chief Complaint - Chief Complaint Chief Complaint: Obtundation <Evaristo Oliver - Last Filed: 07/21/21 21:37> History of Present Illness - Admitted From Admitted From:: ED - History Obtained From Records Reviewed: EMR History obtained from: Patient Exam Limitations: Patient is difficult to arouse and history is incomplete <Evaristo Oliver - Last Filed: 07/21/21 21:37> - History of Present Illness HPI Comment/Other: A 41 year old female presents from the emergency department for methamphetamine intoxication and altered mental status. The patient was found unresponsive and was carried to a personal vehicle and brought to the emergency department by her friend, who is supporting her through her divorce. A urine tox screen in the emergency department was positive for methamphetamine and a chest radiograph demonstrated borderline cardiomegaly. The patient has taken sertraline, bupropion, and lithium in the past. Multiple doses of naloxone were administered in the emergency department with spontaneous eye opening after receiving naloxone but was still nonverbal. GCS flucatuated after administration and multiple doses were given in the ED. The patient reports restlessness, depression, and muscle spasm, but denies other all other ROS. The patient reports that she is sad enough to hurt herself, though her actions were not intentional. (Evaristo Oliver) History - Past Medical History Respiratory: reports: Sleep apnea Endocrine/Autoimmune: reports: HyPOthyroidism Psych: reports: Depression, Anxiety MRSA Hx?: No - Past Surgical History General: reports: Other HEENT: reports: Tonsil/Adenoidectomy - Family & Social History Family History Comment/Other: unobtainable at this time. 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 Issues: Mood Disorder, Other (intoxication resulting in hospitalization) - POLST Patient has POLST: No POLST Status: Full Code <Evaristo Oliver - Last Filed: 07/21/21 21:37> Meds/Allgy <Evaristo Oliver - Last Filed: 07/21/21 21:37> <Marj Hills - Last Filed: 07/22/21 00:45> - Home Medications Home Medications: Ambulatory Orders Medication Instructions Recorded Confirmed Levothyroxine Sodium [Synthroid] 200 mcg PO QDAC 07/21/21 Sertraline [Zoloft] 50 mg PO DAILY 07/21/21 Trazodone HCl 100 mg PO QPM 07/21/21 buPROPion HCL [Bupropion Xl] 150 mg PO DAILY 07/21/21 cloNIDine [Catapres] 0.2 mg PO QPM 07/21/21 - Allergies Allergies/Adverse Reactions: Allergies Allergy/AdvReac Type Severity Reaction Status Date / Time Penicillins Allergy Unknown Verified 07/21/21 14:57 Review of Systems - Neurological Neurological: reports: Other (Reports muscle spasm and pain, unclear location) - Psychiatric Psychiatric: reports: Depression <Evaristo Oliver - Last Filed: 07/21/21 21:37> - Other Findings Other Findings: Could not obtain ROS. Patient unable to answer questions. (Evaristo Oliver) <Evaristo Oliver - Last Filed: 07/21/21 21:37> Prior Level of Functionality: Independent (Evaristo Oliver) Exam - Vital Signs Reviewed Vital Signs: Yes - Physical Exam General Appearance: positive: Other (restlessness) Eyes Bilateral: positive: Normal inspection, Other (Pupils mid-dilaed) ENT: positive: Dry mucous membranes Neck: positive: No JVD Respiratory: positive: No respiratory distress, Breath sounds nml Cardiovascular: positive: Regular rate & rhythm, No murmur, No gallop. negative: Irregularly irregular, Tachycardia, Bradycardia Abdomen: positive: Nml bowel sounds Skin: positive: Color nml, Warm, Dry. negative: Diaphoresis Neurologic/Psychiatric: positive: Depressed mood/affect, Other (Restless and moving constantly in bed. Spasmodic movements of all limbs. Responds to speech with delayed movement to command. Patient has asymmetrical facial movement with involuntary grimacing.) Babinski Reflex: Right: Down, Left: Down <Evaristo Oliver - Last Filed: 07/21/21 21:37> - Vital Signs Vital Signs: Vital Signs x48h Temp Pulse Resp BP Pulse Ox 07/21/21 19:30 82 14 138/95 H 100 07/21/21 19:00 82 12 152/105 H 100 07/21/21 18:30 94 21 152/101 H 100 07/21/21 18:00 77 22 145/102 H 100 07/21/21 17:30 93 19 142/101 H 98 07/21/21 17:00 84 18 144/98 H 100 07/21/21 16:30 82 18 119/96 H 100 07/21/21 16:00 81 21 135/96 H 100 07/21/21 15:15 85 18 146/97 H 100 07/21/21 14:57 36.5 C 80 18 150/100 H 99 Conclusion/Plan - Problem List (1) Methamphetamine use Conclusion/Plan: A 41 year old female presents following an episode of unresponsiveness and altered mental status, found at home by a friend who is emotionally supporting her during her divorce. Tox screen was positive for methamphetamine and lithium. Patient reports depression, muscle spasm, and restlessness on ROS. Physical exam is significant for restlessness and spasmodic movements. The patient does not remember using any additional illicit substances or otherwise. She endorses being sad about her marital situation, but denies suicidal ideation. Head CT was negative for intracranial pathology. IV levetiracetam was administered due to the nature of the patient's movement, though seizure is not suspected as the patient can follow commands with a delay and responds to painful stimuli. Patient is likely experiencing encephalopathy from methamphetamine use with another unknown substance. Patient is stable placed in observation with IV fluids and clinical stats is closely monitored for changes (2) Altered mental status Conclusion/Plan: Mental status changes likely due to methamphetamine use in addition to another unknown . Patient is no longer unresponsive and GCS has improved. Patient denies using substances other than methamphetamine. Mental status will continue to be monitored during the stay. Qualifiers: Altered mental status type: coma Coma depth: Sugey coma 9-12 Coma timing: at arrival to emergency department Qualified Code(s): R40.2422 - [place] coma scale score 9-12, at arrival to emergency department (3) Mood disorder Conclusion/Plan: Patient endorses sadness caused by her social situation, but denies SI. The patient has a history of sertraline, bupropion, and lithium use and will be encouraged to follow up with her primary are provider to further address her concerns. Social work will see the patient during her stay. (4) Hypertension Conclusion/Plan: Hypertension likely caused by stimulant effects of methamphetamine. Continue to monitor Qualifiers: Hypertension type: unspecified Qualified Code(s): I10 - Essential (primary) hypertension (5) Hyponatremia Conclusion/Plan: Sodium level mildly decreased below baseline. This is likely due to IV hydration, but clinical signs and labs will be monitored during stay. - Lab Results Fish Bones: 07/21/21 14:59 07/21/21 14:59 - Diagnostic Imaging Results Diagnostic Imaging Results: positive: Final report reviewed - EKG Results EKG Interpreted Independently: No <Evaristo Oliver - Last Filed: 07/21/21 21:37> - Lab Results Fish Bones: 07/21/21 14:59 07/21/21 14:59 <Marj Hills - Last Filed: 07/22/21 00:45> - Diagnostic Imaging Results Diagnostic Imaging Results Comments: CT head, chest radiograph. (Evaristo Oliver) Core Measures - Anticipated LOS I expect patient to be DC'd or transferred within 96 hours.: Yes - DVT/VTE - Prophylaxis VTE/DVT Device ordered at admit?: Yes <Evaristo Oliver - Last Filed: 07/21/21 21:37>
[2021-07-21] MEDS: levETIRAcetam INJ 500 MG in SODIUM CHLORIDE 0.9% 100ML 100 ML IV SCH (21:30)
[2021-07-22] MEDS: IBUPROFEN 600 MG TABLET PO PRN (00:47)
[2021-07-22] MEDS: SODIUM CHLORIDE FLUSH 0.9% 10 ML SYRINGE IVP SCH ×3 (01:25→16:29)
[2021-07-22] MEDS: ACETAMINOPHEN 325 MG TABLET PO PRN ×2 (05:04→17:55)
[2021-07-22 05:19] LABS: CALCIUM 8.1 mg/dL (8.5-10.3); CREATININE 0.9 mg/dL (0.4-1.0); POTASSIUM 3.6 mmol/L (3.5-5.0)
[2021-07-22] MEDS ORDERED: LORazepam 2 MG/ML VIAL IVP PRN ×2 (06:32→08:57)
[2021-07-22] MEDS: ONDANSETRON 4 MG/2 ML VIAL IVP PRN ×2 (06:44→18:47)
[2021-07-22] MEDS: ENOXAPARIN 40 MG/0.4 ML SYRINGE SUBQ SCH (08:28)
[2021-07-22] MEDS: levETIRAcetam INJ 500 MG in SODIUM CHLORIDE 0.9% 100ML 100 ML IV SCH (08:29)
[2021-07-22] MEDS: LACTATED RINGERS 1,000 ML IV SCH ×2 (09:03→22:27)
--- NOTE | 2021-07-22 11:31 | PHARMACY PROGRESS NOTE ---
- Best Possible Medication History Admit Date and Time: 07/21/211950 Processed by: Pharmacy Medication History completed: Yes Patient Interview: Completed Secondary Source(s): Pharmacy records, Insurance records As the person ultimately responsible for medication therapy, providers are able to order a medication from an existing home medication list in [facility] via the "Reconcile Routine" prior to Confirmation of that medication by decision support manager. Such practice is discouraged except when the physician, in their clinical judgment, deems that a medical need exists for a medication without regard to previous use.
--- NOTE | 2021-07-22 13:48 | PROVIDER PROGRESS NOTE ---
Assessment/Plan - Problem List (1) Altered mental status Qualifiers: Altered mental status type: coma Coma depth: [place] coma 9-12 Coma timing: at arrival to emergency department Qualified Code(s): R40.2422 - [place] coma scale score 9-12, at arrival to emergency department Assessment/Plan: 07/22 improved but pt present more somnia and some confusion. we will hold Keppra and ativan, and resume home medications Catapres as needed for anxiety. add neuro check. pt clearly state to me she has no suicide ideation or suicide attempt. (2) Methamphetamine use Conclusion/Plan: advise pt quit illicit drug usage, resume home meds for anxiety control. order IVF. (3) Mood disorder Conclusion/Plan: stable, resume her home meds sertraline, bupropion. pt may followup with her PCP and psychiatrist as out-pt setting (4) Hypertension stable (5) Hyponatremia resolved. (6)hypothyroidism slight elevated TSH but normal arrange T4, resume home synthroid. - Current Meds Current Meds: Current Medications Generic Name Dose Route Start Last Admin Trade Name Freq PRN Reason Stop Dose Admin Acetaminophen 650 mg 07/21/21 19:51 07/22/21 05:04 Acetaminophen 325 Mg Tablet PO 650 mg Q4HR PRN Administration Pain 1 to 4, or Fever Enoxaparin Sodium 40 mg 07/22/21 09:00 07/22/21 08:28 Enoxaparin 40 Mg/0.4 Ml Syringe SUBQ 40 mg DAILY CHRISS Administration Lactated Ringer's 1,000 mls @ 100 mls/hr 07/22/21 09:00 07/22/21 09:03 Lr IV 100 mls/hr .Q10H CHRISS Administration Ibuprofen 600 mg 07/21/21 19:51 07/22/21 00:47 Ibuprofen 600 Mg Tablet PO 600 mg Q6HR PRN Administration Pain 1 to 4 Ondansetron HCl 4 mg 07/21/21 19:51 07/22/21 06:44 Ondansetron 4 Mg/2 Ml Vial IVP 4 mg Q6HR PRN Administration Nausea / Vomiting Sodium Chloride 10 ml 07/22/21 01:00 07/22/21 08:29 Sodium Chloride Flush 0.9% 10 Ml Syringe IVP 10 ml 0100,0900,1700 CHRISS Administration - Lab Result Fish Bone Diagrams: 07/21/21 14:59 07/22/21 04:24 - Additional Planning My Orders: My Active Orders 07/22/21 09:00 Lactated Ringers [Lr] 1,000 ml IV 100 mls/hr 07/22/21 13:38 cloNIDine [Catapres] 0.2 mg PO QPM PRN 07/22/21 17:00 buPROPion [Wellbutrin Xl] 150 mg PO DAILY 07/22/21 21:00 Trazodone HCl [Trazodone HCl] 100 mg PO QPM 07/23/21 07:00 Levothyroxine Sodium [Synthroid] 200 mcg PO QDAC 07/23/21 09:00 Sertraline [Zoloft] 50 mg PO DAILY Subjective - Subjective Patient Reports: Resting Comfortably Objective Vital Signs: Vital Signs - 24 hr 07/21/21 07/21/21 07/21/21 14:57 15:15 16:00 Temperature 36.5 C Heart Rate 80 85 81 Heart Rate [ Brachial] Respiratory 18 18 21 Rate Blood Pressure 150/100 H 146/97 H 135/96 H Blood Pressure [Right Brachial artery] O2 Saturation 99 100 100 07/21/21 07/21/21 07/21/21 16:30 17:00 17:30 Temperature Heart Rate 82 84 93 Heart Rate [ Brachial] Respiratory 18 18 19 Rate Blood Pressure 119/96 H 144/98 H 142/101 H Blood Pressure [Right Brachial artery] O2 Saturation 100 100 98 07/21/21 07/21/21 07/21/21 18:00 18:30 19:00 Temperature Heart Rate 77 94 82 Heart Rate [ Brachial] Respiratory 22 21 12 Rate Blood Pressure 145/102 H 152/101 H 152/105 H Blood Pressure [Right Brachial artery] O2 Saturation 100 100 100 07/21/21 07/21/21 07/22/21 19:30 21:00 00:08 Temperature 36.4 C L 36.7 C Heart Rate 82 Heart Rate [ 84 65 Brachial] Respiratory 14 20 18 Rate Blood Pressure 138/95 H Blood Pressure 132/89 H [Right Brachial artery] O2 Saturation 100 98 99 07/22/21 07/22/21 07/22/21 04:57 07:14 10:54 Temperature 36.6 C 36.5 C Heart Rate Heart Rate [ 66 81 84 Brachial] Respiratory 17 18 Rate Blood Pressure Blood Pressure 150/80 H 163/85 H 145/96 H [Right Brachial artery] O2 Saturation 100 100 98 07/22/21 12:51 Temperature 36.6 C Heart Rate Heart Rate [ 90 Brachial] Respiratory 17 Rate Blood Pressure Blood Pressure 141/95 H [Right Brachial artery] O2 Saturation 97 Oxygen O2 Source Room air I&O (Last 24 Hrs): Intake and Output Totals x24h 07/20/21 07/21/21 07/22/21 23:59 23:59 23:59 Intake Total 1105 1345 Output Total 0 550 Balance 1105 795 General: Alert, No acute distress HEENT: Atraumatic Neck: Supple Lymphatic: no adenopathy Neuro: Alert, Non Focal Cardiovascular: Regular rate, Normal S1, Normal S2 Respiratory: Chest non-tender, No respiratory distress Abdomen: Normal bowel sounds, Soft Extremities: Normal pulses - Results Results: Laboratory Results WBC 6.2 x10^3/uL (4.8-10.8) 07/21/21 14:59 RBC 4.90 10^6/uL (4.20-5.40) 07/21/21 14:59 Hgb 13.7 g/dL (12.0-16.0) 07/21/21 14:59 Hct 40.7 % (37.0-47.0) 07/21/21 14:59 MCV 83.1 fL (81.0-99.0) 07/21/21 14:59 MCH 28.0 pg (27.0-31.0) 07/21/21 14:59 MCHC 33.7 g/dL (32.0-36.0) 07/21/21 14:59 RDW 13.6 % (12.0-15.0) 07/21/21 14:59 Plt Count 237 10^3/uL (130-450) 07/21/21 14:59 MPV 10.5 fL (7.9-10.8) 07/21/21 14:59 Neut # (Auto) 4.5 10^3/uL (1.5-6.6) 07/21/21 14:59 Lymph # (Auto) 1.4 10^3/uL (1.5-3.5) L 07/21/21 14:59 [place] # (Auto) 0.3 10^3/uL (0.0-1.0) 07/21/21 14:59 Eos # (Auto) 0.1 10^3/uL (0.0-0.7) 07/21/21 14:59 Baso # (Auto) 0.0 10^3/uL (0.0-0.1) 07/21/21 14:59 Absolute Nucleated RBC 0.00 x10^3/uL 07/21/21 14:59 Nucleated RBC % 0.0 /100WBC 07/21/21 14:59 Sodium 136 mmol/L (135-145) 07/22/21 04:24 Potassium 3.6 mmol/L (3.5-5.0) 07/22/21 04:24 Chloride 105 mmol/L (101-111) 07/22/21 04:24 Carbon Dioxide 21 mmol/L (21-32) 07/22/21 04:24 Anion Gap 10.0 (6-13) 07/22/21 04:24 BUN 8 mg/dL (6-20) 07/22/21 04:24 Creatinine 0.9 mg/dL (0.4-1.0) 07/22/21 04:24 Estimated GFR (MDRD) 70 (>89) L 07/22/21 04:24 Glucose 89 mg/dL (70-100) 07/22/21 04:24 POC Whole Bld Glucose 72 mg/dL (70 - 100) 07/21/21 22:15 Calcium 8.1 mg/dL (8.5-10.3) L 07/22/21 04:24 Total Bilirubin 0.6 mg/dL (0.2-1.0) 07/21/21 14:59 AST 24 IU/L (10-42) 07/21/21 14:59 ALT 18 IU/L (10-60) 07/21/21 14:59 Alkaline Phosphatase 45 IU/L (42-121) 07/21/21 14:59 Troponin I High Sens 3.1 ng/L (2.3-14.8) 07/21/21 14:59 B-Natriuretic Peptide 45 pg/mL (5-100) 07/21/21 14:59 Total Protein 7.4 g/dL (6.7-8.2) 07/21/21 14:59 Albumin 4.0 g/dL (3.2-5.5) 07/21/21 14:59 Globulin 3.4 g/dL (2.1-4.2) 07/21/21 14:59 Albumin/Globulin Ratio 1.2 (1.0-2.2) 07/21/21 14:59 Lipase 39 U/L (22-51) 07/21/21 14:59 TSH 7.09 uIU/mL (0.34-5.60) H 07/21/21 14:59 Thyroxine (T4) 11.87 ug/dL (6.09-12.23) 07/21/21 14:59 Urine Color YELLOW 07/21/21 15:21 Urine Clarity CLEAR (CLEAR) 07/21/21 15:21 Urine pH 6.5 PH (5.0-7.5) 07/21/21 15:21 Ur Specific [place] 1.010 (1.002-1.030) 07/21/21 15:21 Urine Protein NEGATIVE mg/dL (NEGATIVE) 07/21/21 15:21 Urine Glucose (UA) NEGATIVE mg/dL (NEGATIVE) 07/21/21 15:21 Urine Ketones 15 mg/dL (NEGATIVE) H 07/21/21 15:21 Urine Occult Blood NEGATIVE (NEGATIVE) 07/21/21 15:21 Urine Nitrite NEGATIVE (NEGATIVE) 07/21/21 15:21 Urine Bilirubin NEGATIVE (NEGATIVE) 07/21/21 15:21 Urine Urobilinogen 0.2 (NORMAL) E.U./dL (NORMAL) 07/21/21 15:21 Ur Leukocyte Esterase NEGATIVE (NEGATIVE) 07/21/21 15:21 Ur Microscopic Review NOT INDICATED 07/21/21 15:21 Urine Culture Comments NOT INDICATED 07/21/21 15:21 Urine HCG, Qual NEGATIVE 07/21/21 15:21 Nasal Adenovirus (PCR) NOT DETECTED 07/21/21 16:25 Nasal B. parapertussis DNA (PCR) NOT DETECTED 07/21/21 16:25 Nasal Coronavir 229E PCR NOT DETECTED 07/21/21 16:25 Nasal Coronavir HKU1 PCR DETECTED A 07/21/21 16:25 Nasal Coronavir NL63 PCR NOT DETECTED 07/21/21 16:25 Nasal Coronavir OC43 PCR NOT DETECTED 07/21/21 16:25 Nasal Enterovir/Rhinovir PCR NOT DETECTED 07/21/21 16:25 Nasal Influenza B PCR NOT DETECTED 07/21/21 16:25 Nasal Influenza A PCR NOT DETECTED 07/21/21 16:25 Nasal Parainfluen 1 PCR NOT DETECTED 07/21/21 16:25 Nasal Parainfluen 2 PCR NOT DETECTED 07/21/21 16:25 Nasal Parainfluen 3 PCR NOT DETECTED 07/21/21 16:25 Nasal Parainfluen 4 PCR NOT DETECTED 07/21/21 16:25 Nasal RSV (PCR) NOT DETECTED 07/21/21 16:25 Nasal B.pertussis DNA PCR NOT DETECTED 07/21/21 16:25 Nasal C.pneumoniae (PCR) NOT DETECTED 07/21/21 16:25 Navid Human Metapneumo PCR NOT DETECTED 07/21/21 16:25 Nasal M.pneumoniae (PCR) NOT DETECTED 07/21/21 16:25 Nasal SARS-CoV-2 (PCR) NOT DETECTED 07/21/21 16:25 Last Dose Date Not Reportable 07/21/21 14:59 Last Dose Time Not Reportable 07/21/21 14:59 Salicylates < 6.0 mg/dL 07/21/21 14:59 Urine Opiates Screen NEGATIVE (NEGATIVE) 07/21/21 15:21 Ur Oxycodone Screen NEGATIVE (NEGATIVE) 07/21/21 15:21 Urine Methadone Screen NEGATIVE (NEGATIVE) 07/21/21 15:21 Ur Propoxyphene Screen NEGATIVE (NEGATIVE) 07/21/21 15:21 Acetaminophen < 10 ug/mL (10-30) L 07/21/21 14:59 Ur Barbiturates Screen NEGATIVE (NEGATIVE) 07/21/21 15:21 Ur Tricyclics Screen NEGATIVE (NEGATIVE) 07/21/21 15:21 Ur Phencyclidine Scrn NEGATIVE (NEGATIVE) 07/21/21 15:21 Ur Amphetamine Screen POSITIVE (NEGATIVE) H 07/21/21 15:21 U Methamphetamines Scrn POSITIVE (NEGATIVE) H 07/21/21 15:21 U Benzodiazepines Scrn NEGATIVE (NEGATIVE) 07/21/21 15:21 [place] 0.21 mmol/L 07/21/21 14:59 Urine Cocaine Screen NEGATIVE (NEGATIVE) 07/21/21 15:21 U Cannabinoids Screen NEGATIVE (NEGATIVE) 07/21/21 15:21 Ethyl Alcohol < 5.0 mg/dL 07/21/21 14:59 ABX Reporting Has patient been on IV antibiotics over the past 48 hours?: No Current Medications - Current Medications Current Medications: Active Medications Acetaminophen (Acetaminophen 325 Mg Tablet) 650 mg PO Q4HR PRN PRN Reason: Pain 1 to 4, or Fever Last Admin: 07/22/21 05:04 Dose: 650 mg Bupropion HCl (Bupropion Xl 150 Mg Tablet) 150 mg PO DAILY [facility] Clonidine HCl (Clonidine 0.1 Mg Tablet) 0.2 mg PO QPM PRN PRN Reason: Anxiety Enoxaparin Sodium (Enoxaparin 40 Mg/0.4 Ml Syringe) 40 mg SUBQ DAILY [facility] Last Admin: 07/22/21 08:28 Dose: 40 mg Lactated Ringer's (Lr) 1,000 mls @ 100 mls/hr IV .Q10H [facility] Last Admin: 07/22/21 09:03 Dose: 100 mls/hr Ibuprofen (Ibuprofen 600 Mg Tablet) 600 mg PO Q6HR PRN PRN Reason: Pain 1 to 4 Last Admin: 07/22/21 00:47 Dose: 600 mg Levothyroxine Sodium (Levothyroxine 100 Mcg Tablet) 200 mcg PO QDAC [facility] Ondansetron HCl (Ondansetron Odt 4 Mg Tablet) 4 mg TL Q6HR PRN PRN Reason: Nausea / Vomiting Ondansetron HCl (Ondansetron 4 Mg/2 Ml Vial) 4 mg IVP Q6HR PRN PRN Reason: Nausea / Vomiting Last Admin: 07/22/21 06:44 Dose: 4 mg Sertraline HCl (Sertraline 50 Mg Tablet) 50 mg PO DAILY [facility] Sodium Chloride (Sodium Chloride Flush 0.9% 10 Ml Syringe) 10 ml IVP PRN PRN PRN Reason: NEEDED PER PROVIDER ORDERS Sodium Chloride (Sodium Chloride Flush 0.9% 10 Ml Syringe) 10 ml IVP 0100,0900,1700 [facility] Last Admin: 07/22/21 08:29 Dose: 10 ml Trazodone HCl (Trazodone 50 Mg Tablet) 100 mg PO QPM [facility] Levothyroxine Sodium [Synthroid] 200 mcg PO QDAC 07/21/21 Sertraline [Zoloft] 50 mg PO DAILY 07/21/21 Trazodone HCl 100 mg PO QPM 05/16/22 buPROPion HCL [Bupropion Xl] 150 mg PO DAILY 07/21/21 cloNIDine [Catapres] 0.2 mg PO QPM PRN 07/21/21
[2021-07-22] MEDS ORDERED: buPROPion XL 150 MG TABLET PO SCH (17:00)
[2021-07-22] MEDS ORDERED: traZODone 50 MG TABLET PO SCH (21:00)
[2021-07-23] MEDS: SODIUM CHLORIDE FLUSH 0.9% 10 ML SYRINGE IVP SCH ×3 (01:03→18:46)
[2021-07-23] MEDS: cloNIDine 0.1 MG TABLET PO PRN (01:06)
[2021-07-23] MEDS: IBUPROFEN 600 MG TABLET PO PRN ×2 (01:19→08:49)
[2021-07-23] MEDS: LEVOTHYROXINE 100 MCG TABLET PO SCH (05:52)
[2021-07-23 08:01] LABS: BASOPHILS % (AUTO) 0.5 %; EOSINOPHILS # (AUTO) 0.1 10^3/uL (0.0-0.7); EOSINOPHILS % (AUTO) 2.5 %; HGB - HEMOGLOBIN 13.3 g/dL (12.0-16.0); LYMPHOCYTES # (AUTO) 1.6 10^3/uL (1.5-3.5); LYMPHOCYTES % (AUTO) 38.2 %; MEAN CORPUSCULAR HEMOGLOBIN 28.1 pg (27.0-31.0); MEAN CORPUSCULAR HGB CONC 33.3 g/dL (32.0-36.0); MEAN CORPUSCULAR VOLUME 84.6 fL (81.0-99.0); MEAN PLATELET VOLUME 10.2 fL (7.9-10.8); MONOCYTES # (AUTO) 0.4 10^3/uL (0.0-1.0); MONOCYTES % (AUTO) 9.9 %; NEUTROPHILS % (AUTO) 48.7 %; PLT - PLATELET COUNT 201 10^3/uL (130-450); RED BLOOD COUNT 4.73 10^6/uL (4.20-5.40); RED CELL DISTRIBUTION WIDTH 14.1 % (12.0-15.0); WHITE BLOOD COUNT 4.1 x10^3/uL (4.8-10.8)
[2021-07-23 08:09] LABS: CALCIUM 8.4 mg/dL (8.5-10.3); CREATININE 0.8 mg/dL (0.4-1.0); POTASSIUM 3.4 mmol/L (3.5-5.0)
[2021-07-23] MEDS: LACTATED RINGERS 1,000 ML IV SCH ×2 (08:42→19:47)
[2021-07-23] MEDS: ONDANSETRON 4 MG/2 ML VIAL IVP PRN (08:42)
[2021-07-23] MEDS: ENOXAPARIN 40 MG/0.4 ML SYRINGE SUBQ SCH (08:44)
[2021-07-23] MEDS: buPROPion XL 150 MG TABLET PO SCH (08:44)
[2021-07-23] MEDS: SERTRALINE 50 MG TABLET PO SCH (08:44)
[2021-07-23] MEDS ORDERED: POTASSIUM CHLORIDE 20 MEQ TABLET PO ONE (09:03)
[2021-07-23] MEDS: oxyCODONE 5 MG TABLET PO PRN ×3 (10:54→19:45)
[2021-07-23] MEDS: ACETAMINOPHEN 325 MG TABLET PO PRN ×2 (14:09→19:45)
[2021-07-23] MEDS: polyethylene glycoL 3350 17 GM PACKET PO SCH (15:46)
--- NOTE | 2021-07-23 15:59 | PROVIDER PROGRESS NOTE ---
Assessment/Plan - Problem List (1) Unsteady gait Assessment/Plan: pt present unsteady gain. PT/OT evaluated and treated for pt. pt is unsafe to be d/c at this point, consulted with social services aide for d/c planning. pt had CT of head which was no acute process. pt complain of significant back pain, order Lumbar/spine CT study continue fall precaution, continue pain control, continue PT/OT (2) Altered mental status improved significantly, resume her home meds, hold Keppra and ativan. 07/22 improved but pt present more somnia and some confusion. we will hold Keppra and ativan, and resume home medications Catapres as needed for anxiety. add neuro check. pt clearly state to me she has no suicide ideation or suicide attempt. (3) Methamphetamine use Conclusion/Plan: advise pt quit illicit drug usage, resume home meds for anxiety control. order IVF. (4) Mood disorder Conclusion/Plan: stable, resume her home meds sertraline, bupropion. pt may followup with her PCP and psychiatrist as out-pt setting (5) Hypertension stable (6) Hyponatremia resolved. (7)hypothyroidism slight elevated TSH but normal arrange T4, resume home synthroid. - Current Meds Current Meds: Current Medications Generic Name Dose Route Start Last Admin Trade Name Freq PRN Reason Stop Dose Admin Acetaminophen 650 mg 07/21/21 19:51 07/23/21 14:09 Acetaminophen 325 Mg Tablet PO 650 mg Q4HR PRN Administration Pain 1 to 4, or Fever Bupropion HCl 150 mg 07/23/21 09:00 07/23/21 08:44 Bupropion Xl 150 Mg Tablet PO 150 mg DAILY CHRISS Administration Clonidine HCl 0.2 mg 07/22/21 13:38 07/23/21 01:06 Clonidine 0.1 Mg Tablet PO 0.2 mg QPM PRN Administration Anxiety Enoxaparin Sodium 40 mg 07/22/21 09:00 07/23/21 08:44 Enoxaparin 40 Mg/0.4 Ml Syringe SUBQ 40 mg DAILY CHRISS Administration Lactated Ringer's 1,000 mls @ 100 mls/hr 07/22/21 09:00 07/23/21 08:42 Lr IV 100 mls/hr .Q10H CHRISS Administration Ibuprofen 600 mg 07/21/21 19:51 07/23/21 08:49 Ibuprofen 600 Mg Tablet PO 600 mg Q6HR PRN Administration Pain 1 to 4 Levothyroxine Sodium 200 mcg 07/23/21 07:00 07/23/21 05:52 Levothyroxine 100 Mcg Tablet PO 200 mcg QDAC CHRISS Administration Ondansetron HCl 4 mg 07/21/21 19:51 07/23/21 01:06 Ondansetron Odt 4 Mg Tablet TL 4 mg Q6HR PRN Administration Nausea / Vomiting Ondansetron HCl 4 mg 07/21/21 19:51 07/23/21 08:42 Ondansetron 4 Mg/2 Ml Vial IVP 4 mg Q6HR PRN Administration Nausea / Vomiting Oxycodone HCl 5 mg 07/23/21 09:04 07/23/21 15:46 Oxycodone 5 Mg Tablet PO 5 mg Q4HR PRN Administration PAIN Polyethylene Glycol 17 gm 07/23/21 16:00 07/23/21 15:46 Polyethylene Glycol 3350 17 Gm Packet PO 17 gm DAILY CHRISS Administration Sertraline HCl 50 mg 07/23/21 09:00 07/23/21 08:44 Sertraline 50 Mg Tablet PO 50 mg DAILY CHRISS Administration Sodium Chloride 10 ml 07/22/21 01:00 07/23/21 08:44 Sodium Chloride Flush 0.9% 10 Ml Syringe IVP Not Given 0100,0900,1700 CHRISS - Lab Result Fish Bone Diagrams: 07/23/21 07:54 07/23/21 07:54 - Additional Planning My Orders: My Active Orders 07/23/21 Evaluate and Treat OT [OT] Routine Evaluate and Treat PT [PT] Routine 07/23/21 07:00 Levothyroxine [Synthroid] 200 mcg PO QDAC 07/23/21 09:00 Sertraline [Zoloft] 50 mg PO DAILY buPROPion [Wellbutrin Xl] 150 mg PO DAILY 07/23/21 09:04 oxyCODONE [Roxicodone] 5 mg PO Q4HR PRN 07/23/21 09:06 Out of bed 4+ hours [RC] QID 07/23/21 15:57 LUMBAR SPINE WO [CT] Routine 07/23/21 16:00 polyethylene glycoL 3350 [Miralax] 17 gm PO DAILY 07/23/21 21:00 traZODone [Desyrel] 100 mg PO QPM 07/24/21 05:00 BMP - BASIC METABOLIC PANEL [CHEM] DAILYLAB CBC - COMP BLD CT W/AUTO DIFF [HEME] DAILYLAB 07/25/21 05:00 BMP - BASIC METABOLIC PANEL [CHEM] DAILYLAB CBC - COMP BLD CT W/AUTO DIFF [HEME] DAILYLAB 07/26/21 05:00 BMP - BASIC METABOLIC PANEL [CHEM] DAILYLAB CBC - COMP BLD CT W/AUTO DIFF [HEME] DAILYLAB Subjective - Subjective Patient Reports: Back Pain Objective Vital Signs: Vital Signs - 24 hr 07/22/21 07/22/21 07/23/21 17:00 21:00 01:06 Temperature 36.4 C L 36.9 C 36.6 C Heart Rate [ 84 76 70 Brachial] Respiratory 16 16 14 Rate Blood Pressure 148/95 H 147/97 H 138/78 H [Right Brachial artery] O2 Saturation 99 98 99 07/23/21 07/23/21 07/23/21 05:52 08:19 12:47 Temperature 36.9 C 37.1 C 36.5 C Heart Rate [ 56 L 65 70 Brachial] Respiratory 16 18 15 Rate Blood Pressure 121/82 H 126/87 H 135/87 H [Right Brachial artery] O2 Saturation 96 98 100 07/23/21 15:43 Temperature 37.2 C Heart Rate [ 67 Brachial] Respiratory 19 Rate Blood Pressure 131/83 H [Right Brachial artery] O2 Saturation 99 Oxygen O2 Source Room air I&O (Last 24 Hrs): Intake and Output Totals x24h 07/21/21 07/22/21 07/23/21 23:59 23:59 23:59 Intake Total 1105 2895 1420 Output Total 0 950 1500 Balance 1105 1945 -80 General: Alert, Oriented x3, No acute distress HEENT: Atraumatic Neck: Supple Lymphatic: no adenopathy Neuro: Alert, Non Focal, Oriented Times 3 Cardiovascular: Regular rate, Normal S1, Normal S2 Respiratory: Chest non-tender, No respiratory distress Abdomen: Normal bowel sounds, Soft Extremities: Normal pulses - Results Results: Laboratory Results WBC 4.1 x10^3/uL (4.8-10.8) L 07/23/21 07:54 RBC 4.73 10^6/uL (4.20-5.40) 07/23/21 07:54 Hgb 13.3 g/dL (12.0-16.0) 07/23/21 07:54 Hct 40.0 % (37.0-47.0) 07/23/21 07:54 MCV 84.6 fL (81.0-99.0) 07/23/21 07:54 MCH 28.1 pg (27.0-31.0) 07/23/21 07:54 MCHC 33.3 g/dL (32.0-36.0) 07/23/21 07:54 RDW 14.1 % (12.0-15.0) 07/23/21 07:54 Plt Count 201 10^3/uL (130-450) 07/23/21 07:54 MPV 10.2 fL (7.9-10.8) 07/23/21 07:54 Neut # (Auto) 2.0 10^3/uL (1.5-6.6) 07/23/21 07:54 Lymph # (Auto) 1.6 10^3/uL (1.5-3.5) 07/23/21 07:54 [place] # (Auto) 0.4 10^3/uL (0.0-1.0) 07/23/21 07:54 Eos # (Auto) 0.1 10^3/uL (0.0-0.7) 07/23/21 07:54 Baso # (Auto) 0.0 10^3/uL (0.0-0.1) 07/23/21 07:54 Absolute Nucleated RBC 0.00 x10^3/uL 07/23/21 07:54 Nucleated RBC % 0.0 /100WBC 07/23/21 07:54 Sodium 138 mmol/L (135-145) 07/23/21 07:54 Potassium 3.4 mmol/L (3.5-5.0) L 07/23/21 07:54 Chloride 103 mmol/L (101-111) 07/23/21 07:54 Carbon Dioxide 27 mmol/L (21-32) 07/23/21 07:54 Anion Gap 8.0 (6-13) 07/23/21 07:54 BUN 11 mg/dL (6-20) 07/23/21 07:54 Creatinine 0.8 mg/dL (0.4-1.0) 07/23/21 07:54 Estimated GFR (MDRD) 80 (>89) L 07/23/21 07:54 Glucose 111 mg/dL (70-100) H 07/23/21 07:54 POC Whole Bld Glucose 72 mg/dL (70 - 100) 07/21/21 22:15 Calcium 8.4 mg/dL (8.5-10.3) L 07/23/21 07:54 Total Bilirubin 0.6 mg/dL (0.2-1.0) 07/21/21 14:59 AST 24 IU/L (10-42) 07/21/21 14:59 ALT 18 IU/L (10-60) 07/21/21 14:59 Alkaline Phosphatase 45 IU/L (42-121) 07/21/21 14:59 Troponin I High Sens 3.1 ng/L (2.3-14.8) 07/21/21 14:59 B-Natriuretic Peptide 45 pg/mL (5-100) 07/21/21 14:59 Total Protein 7.4 g/dL (6.7-8.2) 07/21/21 14:59 Albumin 4.0 g/dL (3.2-5.5) 07/21/21 14:59 Globulin 3.4 g/dL (2.1-4.2) 07/21/21 14:59 Albumin/Globulin Ratio 1.2 (1.0-2.2) 07/21/21 14:59 Lipase 39 U/L (22-51) 07/21/21 14:59 TSH 7.09 uIU/mL (0.34-5.60) H 07/21/21 14:59 Thyroxine (T4) 11.87 ug/dL (6.09-12.23) 07/21/21 14:59 Urine Color YELLOW 07/21/21 15:21 Urine Clarity CLEAR (CLEAR) 07/21/21 15:21 Urine pH 6.5 PH (5.0-7.5) 07/21/21 15:21 Ur Specific [place] 1.010 (1.002-1.030) 07/21/21 15:21 Urine Protein NEGATIVE mg/dL (NEGATIVE) 07/21/21 15:21 Urine Glucose (UA) NEGATIVE mg/dL (NEGATIVE) 07/21/21 15:21 Urine Ketones 15 mg/dL (NEGATIVE) H 07/21/21 15:21 Urine Occult Blood NEGATIVE (NEGATIVE) 07/21/21 15:21 Urine Nitrite NEGATIVE (NEGATIVE) 07/21/21 15:21 Urine Bilirubin NEGATIVE (NEGATIVE) 07/21/21 15:21 Urine Urobilinogen 0.2 (NORMAL) E.U./dL (NORMAL) 07/21/21 15:21 Ur Leukocyte Esterase NEGATIVE (NEGATIVE) 07/21/21 15:21 Ur Microscopic Review NOT INDICATED 07/21/21 15:21 Urine Culture Comments NOT INDICATED 07/21/21 15:21 Urine HCG, Qual NEGATIVE 07/21/21 15:21 Nasal Adenovirus (PCR) NOT DETECTED 07/21/21 16:25 Nasal B. parapertussis DNA (PCR) NOT DETECTED 07/21/21 16:25 Nasal Coronavir 229E PCR NOT DETECTED 07/21/21 16:25 Nasal Coronavir HKU1 PCR DETECTED A 07/21/21 16:25 Nasal Coronavir NL63 PCR NOT DETECTED 07/21/21 16:25 Nasal Coronavir OC43 PCR NOT DETECTED 07/21/21 16:25 Nasal Enterovir/Rhinovir PCR NOT DETECTED 07/21/21 16:25 Nasal Influenza B PCR NOT DETECTED 07/21/21 16:25 Nasal Influenza A PCR NOT DETECTED 07/21/21 16:25 Nasal Parainfluen 1 PCR NOT DETECTED 07/21/21 16:25 Nasal Parainfluen 2 PCR NOT DETECTED 07/21/21 16:25 Nasal Parainfluen 3 PCR NOT DETECTED 07/21/21 16:25 Nasal Parainfluen 4 PCR NOT DETECTED 07/21/21 16:25 Nasal RSV (PCR) NOT DETECTED 07/21/21 16:25 Nasal B.pertussis DNA PCR NOT DETECTED 07/21/21 16:25 Nasal C.pneumoniae (PCR) NOT DETECTED 07/21/21 16:25 Navid Human Metapneumo PCR NOT DETECTED 07/21/21 16:25 Nasal M.pneumoniae (PCR) NOT DETECTED 07/21/21 16:25 Nasal SARS-CoV-2 (PCR) NOT DETECTED 07/21/21 16:25 Last Dose Date Not Reportable 07/21/21 14:59 Last Dose Time Not Reportable 07/21/21 14:59 Salicylates < 6.0 mg/dL 07/21/21 14:59 Urine Opiates Screen NEGATIVE (NEGATIVE) 07/21/21 15:21 Ur Oxycodone Screen NEGATIVE (NEGATIVE) 07/21/21 15:21 Urine Methadone Screen NEGATIVE (NEGATIVE) 07/21/21 15:21 Ur Propoxyphene Screen NEGATIVE (NEGATIVE) 07/21/21 15:21 Acetaminophen < 10 ug/mL (10-30) L 07/21/21 14:59 Ur Barbiturates Screen NEGATIVE (NEGATIVE) 07/21/21 15:21 Ur Tricyclics Screen NEGATIVE (NEGATIVE) 07/21/21 15:21 Ur Phencyclidine Scrn NEGATIVE (NEGATIVE) 07/21/21 15:21 Ur Amphetamine Screen POSITIVE (NEGATIVE) H 07/21/21 15:21 U Methamphetamines Scrn POSITIVE (NEGATIVE) H 07/21/21 15:21 U Benzodiazepines Scrn NEGATIVE (NEGATIVE) 07/21/21 15:21 [place] 0.21 mmol/L 07/21/21 14:59 Urine Cocaine Screen NEGATIVE (NEGATIVE) 07/21/21 15:21 U Cannabinoids Screen NEGATIVE (NEGATIVE) 07/21/21 15:21 Ethyl Alcohol < 5.0 mg/dL 07/21/21 14:59 ABX Reporting Has patient been on IV antibiotics over the past 48 hours?: No Current Medications - Current Medications Current Medications: Active Medications Acetaminophen (Acetaminophen 325 Mg Tablet) 650 mg PO Q4HR PRN PRN Reason: Pain 1 to 4, or Fever Last Admin: 07/23/21 14:09 Dose: 650 mg Bupropion HCl (Bupropion Xl 150 Mg Tablet) 150 mg PO DAILY [facility] Last Admin: 07/23/21 08:44 Dose: 150 mg Clonidine HCl (Clonidine 0.1 Mg Tablet) 0.2 mg PO QPM PRN PRN Reason: Anxiety Last Admin: 07/23/21 01:06 Dose: 0.2 mg Enoxaparin Sodium (Enoxaparin 40 Mg/0.4 Ml Syringe) 40 mg SUBQ DAILY [facility] Last Admin: 07/23/21 08:44 Dose: 40 mg Lactated Ringer's (Lr) 1,000 mls @ 100 mls/hr IV .Q10H [facility] Last Admin: 07/23/21 08:42 Dose: 100 mls/hr Ibuprofen (Ibuprofen 600 Mg Tablet) 600 mg PO Q6HR PRN PRN Reason: Pain 1 to 4 Last Admin: 07/23/21 08:49 Dose: 600 mg Levothyroxine Sodium (Levothyroxine 100 Mcg Tablet) 200 mcg PO QDAC [facility] Last Admin: 07/23/21 05:52 Dose: 200 mcg Ondansetron HCl (Ondansetron Odt 4 Mg Tablet) 4 mg TL Q6HR PRN PRN Reason: Nausea / Vomiting Last Admin: 07/23/21 01:06 Dose: 4 mg Ondansetron HCl (Ondansetron 4 Mg/2 Ml Vial) 4 mg IVP Q6HR PRN PRN Reason: Nausea / Vomiting Last Admin: 07/23/21 08:42 Dose: 4 mg Oxycodone HCl (Oxycodone 5 Mg Tablet) 5 mg PO Q4HR PRN PRN Reason: PAIN Last Admin: 07/23/21 15:46 Dose: 5 mg Polyethylene Glycol (Polyethylene Glycol 3350 17 Gm Packet) 17 gm PO DAILY [facility] Last Admin: 07/23/21 15:46 Dose: 17 gm Sertraline HCl (Sertraline 50 Mg Tablet) 50 mg PO DAILY [facility] Last Admin: 07/23/21 08:44 Dose: 50 mg Sodium Chloride (Sodium Chloride Flush 0.9% 10 Ml Syringe) 10 ml IVP PRN PRN PRN Reason: NEEDED PER PROVIDER ORDERS Sodium Chloride (Sodium Chloride Flush 0.9% 10 Ml Syringe) 10 ml IVP 0100,0900,1700 [facility] Last Admin: 07/23/21 08:44 Dose: Not Given Trazodone HCl (Trazodone 50 Mg Tablet) 100 mg PO QPM [facility] Levothyroxine Sodium [Synthroid] 200 mcg PO QDAC 07/21/21 Sertraline [Zoloft] 50 mg PO DAILY 07/21/21 Trazodone HCl 100 mg PO QPM 07/21/21 buPROPion HCL [Bupropion Xl] 150 mg PO DAILY 07/21/21 cloNIDine [Catapres] 0.2 mg PO QPM PRN 07/21/21
[2021-07-23] MEDS ORDERED: traZODone 50 MG TABLET PO SCH (21:00)
[2021-07-24] MEDS: SODIUM CHLORIDE FLUSH 0.9% 10 ML SYRINGE IVP SCH ×2 (00:03→08:15)
[2021-07-24] MEDS: LEVOTHYROXINE 100 MCG TABLET PO SCH (05:30)
[2021-07-24] MEDS: ACETAMINOPHEN 325 MG TABLET PO PRN ×3 (05:30→16:51)
[2021-07-24] MEDS: oxyCODONE 5 MG TABLET PO PRN (05:30)
[2021-07-24] MEDS: LACTATED RINGERS 1,000 ML IV SCH ×2 (05:52→15:43)
[2021-07-24 06:15] LABS: BASOPHILS % (AUTO) 0.8 %; EOSINOPHILS # (AUTO) 0.1 10^3/uL (0.0-0.7); HCT - HEMATOCRIT 39.5 % (37.0-47.0); LYMPHOCYTES # (AUTO) 1.7 10^3/uL (1.5-3.5); MEAN CORPUSCULAR HEMOGLOBIN 27.8 pg (27.0-31.0); MEAN CORPUSCULAR HGB CONC 32.9 g/dL (32.0-36.0); MEAN CORPUSCULAR VOLUME 84.6 fL (81.0-99.0); MEAN PLATELET VOLUME 10.8 fL (7.9-10.8); MONOCYTES # (AUTO) 0.3 10^3/uL (0.0-1.0); MONOCYTES % (AUTO) 8.8 %; NEUTROPHILS # (AUTO) 1.5 10^3/uL (1.5-6.6); NEUTROPHILS % (AUTO) 40.1 %; PLT - PLATELET COUNT 194 10^3/uL (130-450); RED BLOOD COUNT 4.67 10^6/uL (4.20-5.40); RED CELL DISTRIBUTION WIDTH 14.2 % (12.0-15.0); WHITE BLOOD COUNT 3.6 x10^3/uL (4.8-10.8)
[2021-07-24 06:23] LABS: CALCIUM 8.6 mg/dL (8.5-10.3); CREATININE 0.7 mg/dL (0.4-1.0); POTASSIUM 3.8 mmol/L (3.5-5.0)
[2021-07-24] MEDS: buPROPion XL 150 MG TABLET PO SCH (08:15)
[2021-07-24] MEDS: polyethylene glycoL 3350 17 GM PACKET PO SCH (08:15)
[2021-07-24] MEDS: ENOXAPARIN 40 MG/0.4 ML SYRINGE SUBQ SCH (08:15)
[2021-07-24] MEDS: SERTRALINE 50 MG TABLET PO SCH (08:15)
--- NOTE | 2021-07-24 08:42 | CT Report ---
PROCEDURE: LUMBAR SPINE WO INDICATIONS: severe back pain TECHNIQUE: Noncontrast 3 mm thick sections acquired from the T12 level to the sacrum. Sagittal and coronal refo rmats were constructed. For radiation dose reduction, the following was used: automated exposure co ntrol, adjustment of mA and/or kV according to patient size. COMPARISON: None. FINDINGS: Image quality: Excellent. Bones: There is normal bony alignment. No acute vertebral body compression fractures. No suspiciou s lytic or blastic bony lesions. Central spinal caliber is of normal overall caliber. No pars defec ts. T12-L1: No significant disc bulge. The foramina and central canal are patent. L1-L2: No significant disc bulge. The foramina and central canal are patent. L2-L3: No significant disc bulge. The foramina and central canal are patent. L3-L4: No significant disc bulge. The foramina and central canal are patent. L4-L5: Mild diffuse disc bulge. The bilateral foramina have mild stenosis. The central canal is pat ent. L5-S1: Disc space narrowing with intradiscal gas and disc osteophytes. Both foramina moderate to se franck foraminal stenosis. The central canal has mild stenosis. Soft tissues: No retroperitoneal masses or hematomas. Visualized aorta is normal in caliber. IMPRESSION: Lumbar spondylosis with severe disc disease at L5-S1 causing moderate to severe bilater al foraminal stenosis and mild central canal stenosis. Recommend MRI of the lumbar spine. Reviewed by: Beny Atwood on 07/24/2021 8:40 AM PDT Approved by: Beny Atwood on 07/24/2021 8:40 AM PDT Station ID: [id number]
[2021-07-24] MEDS ORDERED: LIDOCAINE PATCH 5% TOP PRN (12:23)
--- NOTE | 2021-07-24 16:15 | PROVIDER PROGRESS NOTE ---
Assessment/Plan - Problem List (1) Chest pain Assessment/Plan: pt complain of chest pain. she report her chest pain is located at middle of chest and reproducible. First troponin is 3.8 and is negative for acute VA. we will serial check troponin. pt has no hx of HTN, DM, age at 41, pt has lower risk for CAD. we will repeat EKG as indicated and continue tele and vital monitor pt. (2) Unsteady gait Assessment/Plan: improved. PT saw pt and reported pt had significant improvement, Nurse and DATA OPERATIONS LEADER report pt's gait status is improved. continue fall precaution, and PT/OT (3) Altered mental status improved significantly, resume her home meds, hold Keppra and ativan. (4) Methamphetamine use Conclusion/Plan: advise pt quit illicit drug usage, resume home meds for anxiety control. order IVF. (5) Mood disorder Conclusion/Plan: stable, resume her home meds sertraline, bupropion. pt may followup with her PCP and psychiatrist as out-pt setting (6) Hypertension stable (7) Hyponatremia resolved. (8)hypothyroidism slight elevated TSH but normal arrange T4, resume home synthroid. (9)back pain pt report back pain. CT of lumbar spine show moderate to severe bilateral foraminal stenosis. pt had normal neurovasclular examination at distal bilateral lower extremities. pt report normal patter for her urination and bowel movement. we will continue pain control and order Lidocaine patch for pain control, continue PT/OT, pt may followup with orthopedics as out-pt - Current Meds Current Meds: Current Medications Generic Name Dose Route Start Last Admin Trade Name Meryl PRN Reason Stop Dose Admin Acetaminophen 650 mg 07/21/21 19:51 07/24/21 12:59 Acetaminophen 325 Mg Tablet PO 650 mg Q4HR PRN Administration Pain 1 to 4, or Fever Bupropion HCl 150 mg 07/23/21 09:00 07/24/21 08:15 Bupropion Xl 150 Mg Tablet PO 150 mg DAILY CHRISS Administration Clonidine HCl 0.2 mg 07/22/21 13:38 07/23/21 01:06 Clonidine 0.1 Mg Tablet PO 0.2 mg QPM PRN Administration Anxiety Enoxaparin Sodium 40 mg 07/22/21 09:00 07/24/21 08:15 Enoxaparin 40 Mg/0.4 Ml Syringe SUBQ 40 mg DAILY CHRISS Administration Lactated Ringer's 1,000 mls @ 100 mls/hr 07/22/21 09:00 07/24/21 15:43 Lr IV Not Given .Q10H CHRISS Ibuprofen 600 mg 07/21/21 19:51 07/23/21 08:49 Ibuprofen 600 Mg Tablet PO 600 mg Q6HR PRN Administration Pain 1 to 4 Levothyroxine Sodium 200 mcg 07/23/21 07:00 07/24/21 05:30 Levothyroxine 100 Mcg Tablet PO 200 mcg QDAC CHRISS Administration Lidocaine 1 patch 07/24/21 12:23 07/24/21 13:00 Lidocaine Patch 5% TOP 1 patch DAILY PRN Administration PAIN Ondansetron HCl 4 mg 07/21/21 19:51 07/23/21 01:06 Ondansetron Odt 4 Mg Tablet TL 4 mg Q6HR PRN Administration Nausea / Vomiting Ondansetron HCl 4 mg 07/21/21 19:51 07/23/21 08:42 Ondansetron 4 Mg/2 Ml Vial IVP 4 mg Q6HR PRN Administration Nausea / Vomiting Polyethylene Glycol 17 gm 07/23/21 16:00 07/24/21 08:15 Polyethylene Glycol 3350 17 Gm Packet PO 17 gm DAILY CHRISS Administration Sertraline HCl 50 mg 07/23/21 09:00 07/24/21 08:15 Sertraline 50 Mg Tablet PO 50 mg DAILY CHRISS Administration Sodium Chloride 10 ml 07/22/21 01:00 07/24/21 08:15 Sodium Chloride Flush 0.9% 10 Ml Syringe IVP Not Given 0100,0900,1700 CHRISS Trazodone HCl 100 mg 07/23/21 21:00 07/23/21 20:58 Trazodone 50 Mg Tablet PO 100 mg QPM CHRISS Administration - Lab Result Fish Bone Diagrams: 07/24/21 05:33 07/24/21 05:33 - Additional Planning My Orders: My Active Orders 07/23/21 16:00 polyethylene glycoL 3350 [Miralax] 17 gm PO DAILY 07/23/21 21:00 traZODone [Desyrel] 100 mg PO QPM 07/24/21 09:30 Out of bed 4+ hours [RC] QID 07/24/21 12:23 Lidocaine Patch 5% [Lidoderm Patch] 1 patch TOP DAILY PRN 07/24/21 16:14 TROPONIN I HIGH SENSITIVITY [IAI] Stat 07/25/21 05:00 BMP - BASIC METABOLIC PANEL [CHEM] DAILYLAB CBC - COMP BLD CT W/AUTO DIFF [HEME] DAILYLAB 07/26/21 05:00 BMP - BASIC METABOLIC PANEL [CHEM] DAILYLAB CBC - COMP BLD CT W/AUTO DIFF [HEME] DAILYLAB Subjective - Subjective Patient Reports: Resting Comfortably Objective Vital Signs: Vital Signs - 24 hr 07/23/21 07/24/21 07/24/21 20:31 00:22 05:46 Temperature 36.5 C 36.6 C 36.6 C Heart Rate [ 64 54 L 53 L Brachial] Respiratory 19 18 18 Rate Blood Pressure 135/98 H 114/63 125/73 [Right Brachial artery] O2 Saturation 100 98 100 07/24/21 07/24/21 08:20 11:49 Temperature 36.6 C 37.0 C Heart Rate [ 52 L 60 Brachial] Respiratory 18 16 Rate Blood Pressure 139/96 H 126/75 [Right Brachial artery] O2 Saturation 97 97 Oxygen O2 Source Room air I&O (Last 24 Hrs): Intake and Output Totals x24h 07/22/21 07/23/21 07/24/21 23:59 23:59 23:59 Intake Total 2895 3075 2115 Output Total 950 1500 1700 Balance 1945 1575 415 General: Alert, Oriented x3, No acute distress HEENT: Atraumatic Neck: Supple Lymphatic: no adenopathy Neuro: Alert, Non Focal, Oriented Times 3 Cardiovascular: Regular rate, Normal S1, Normal S2 Respiratory: Chest non-tender, No respiratory distress Abdomen: Normal bowel sounds, Soft Extremities: No edema, Normal pulses Skin: No breakdown - Results Results: Laboratory Results WBC 3.6 x10^3/uL (4.8-10.8) L 07/24/21 05:33 RBC 4.67 10^6/uL (4.20-5.40) 07/24/21 05:33 Hgb 13.0 g/dL (12.0-16.0) 07/24/21 05:33 Hct 39.5 % (37.0-47.0) 07/24/21 05:33 MCV 84.6 fL (81.0-99.0) 07/24/21 05:33 MCH 27.8 pg (27.0-31.0) 07/24/21 05:33 MCHC 32.9 g/dL (32.0-36.0) 07/24/21 05:33 RDW 14.2 % (12.0-15.0) 07/24/21 05:33 Plt Count 194 10^3/uL (130-450) 07/24/21 05:33 MPV 10.8 fL (7.9-10.8) 07/24/21 05:33 Neut # (Auto) 1.5 10^3/uL (1.5-6.6) 07/24/21 05:33 Lymph # (Auto) 1.7 10^3/uL (1.5-3.5) 07/24/21 05:33 [place] # (Auto) 0.3 10^3/uL (0.0-1.0) 07/24/21 05:33 Eos # (Auto) 0.1 10^3/uL (0.0-0.7) 07/24/21 05:33 Baso # (Auto) 0.0 10^3/uL (0.0-0.1) 07/24/21 05:33 Absolute Nucleated RBC 0.00 x10^3/uL 07/24/21 05:33 Nucleated RBC % 0.0 /100WBC 07/24/21 05:33 Sodium 137 mmol/L (135-145) 07/24/21 05:33 Potassium 3.8 mmol/L (3.5-5.0) 07/24/21 05:33 Chloride 102 mmol/L (101-111) 07/24/21 05:33 Carbon Dioxide 27 mmol/L (21-32) 07/24/21 05:33 Anion Gap 8.0 (6-13) 07/24/21 05:33 BUN 8 mg/dL (6-20) 07/24/21 05:33 Creatinine 0.7 mg/dL (0.4-1.0) 07/24/21 05:33 Estimated GFR (MDRD) 93 (>89) 07/24/21 05:33 Glucose 97 mg/dL (70-100) 07/24/21 05:33 POC Whole Bld Glucose 72 mg/dL (70 - 100) 07/21/21 22:15 Calcium 8.6 mg/dL (8.5-10.3) 07/24/21 05:33 Total Bilirubin 0.6 mg/dL (0.2-1.0) 07/21/21 14:59 AST 24 IU/L (10-42) 07/21/21 14:59 ALT 18 IU/L (10-60) 07/21/21 14:59 Alkaline Phosphatase 45 IU/L (42-121) 07/21/21 14:59 Troponin I High Sens 3.1 ng/L (2.3-14.8) 07/21/21 14:59 B-Natriuretic Peptide 45 pg/mL (5-100) 07/21/21 14:59 Total Protein 7.4 g/dL (6.7-8.2) 07/21/21 14:59 Albumin 4.0 g/dL (3.2-5.5) 07/21/21 14:59 Globulin 3.4 g/dL (2.1-4.2) 07/21/21 14:59 Albumin/Globulin Ratio 1.2 (1.0-2.2) 07/21/21 14:59 Lipase 39 U/L (22-51) 07/21/21 14:59 TSH 7.09 uIU/mL (0.34-5.60) H 07/21/21 14:59 Thyroxine (T4) 11.87 ug/dL (6.09-12.23) 07/21/21 14:59 Urine Color YELLOW 07/21/21 15:21 Urine Clarity CLEAR (CLEAR) 07/21/21 15:21 Urine pH 6.5 PH (5.0-7.5) 07/21/21 15:21 Ur Specific [place] 1.010 (1.002-1.030) 07/21/21 15:21 Urine Protein NEGATIVE mg/dL (NEGATIVE) 07/21/21 15:21 Urine Glucose (UA) NEGATIVE mg/dL (NEGATIVE) 07/21/21 15:21 Urine Ketones 15 mg/dL (NEGATIVE) H 07/21/21 15:21 Urine Occult Blood NEGATIVE (NEGATIVE) 07/21/21 15:21 Urine Nitrite NEGATIVE (NEGATIVE) 07/21/21 15:21 Urine Bilirubin NEGATIVE (NEGATIVE) 07/21/21 15:21 Urine Urobilinogen 0.2 (NORMAL) E.U./dL (NORMAL) 07/21/21 15:21 Ur Leukocyte Esterase NEGATIVE (NEGATIVE) 07/21/21 15:21 Ur Microscopic Review NOT INDICATED 07/21/21 15:21 Urine Culture Comments NOT INDICATED 07/21/21 15:21 Urine HCG, Qual NEGATIVE 07/21/21 15:21 Nasal Adenovirus (PCR) NOT DETECTED 07/21/21 16:25 Nasal B. parapertussis DNA (PCR) NOT DETECTED 07/21/21 16:25 Nasal Coronavir 229E PCR NOT DETECTED 07/21/21 16:25 Nasal Coronavir HKU1 PCR DETECTED A 07/21/21 16:25 Nasal Coronavir NL63 PCR NOT DETECTED 07/21/21 16:25 Nasal Coronavir OC43 PCR NOT DETECTED 07/21/21 16:25 Nasal Enterovir/Rhinovir PCR NOT DETECTED 07/21/21 16:25 Nasal Influenza B PCR NOT DETECTED 07/21/21 16:25 Nasal Influenza A PCR NOT DETECTED 07/21/21 16:25 Nasal Parainfluen 1 PCR NOT DETECTED 07/21/21 16:25 Nasal Parainfluen 2 PCR NOT DETECTED 07/21/21 16:25 Nasal Parainfluen 3 PCR NOT DETECTED 07/21/21 16:25 Nasal Parainfluen 4 PCR NOT DETECTED 07/21/21 16:25 Nasal RSV (PCR) NOT DETECTED 07/21/21 16:25 Nasal B.pertussis DNA PCR NOT DETECTED 07/21/21 16:25 Nasal C.pneumoniae (PCR) NOT DETECTED 07/21/21 16:25 Navid Human Metapneumo PCR NOT DETECTED 07/21/21 16:25 Nasal M.pneumoniae (PCR) NOT DETECTED 07/21/21 16:25 Nasal SARS-CoV-2 (PCR) NOT DETECTED 07/21/21 16:25 Last Dose Date Not Reportable 07/21/21 14:59 Last Dose Time Not Reportable 07/21/21 14:59 Salicylates < 6.0 mg/dL 07/21/21 14:59 Urine Opiates Screen NEGATIVE (NEGATIVE) 07/21/21 15:21 Ur Oxycodone Screen NEGATIVE (NEGATIVE) 07/21/21 15:21 Urine Methadone Screen NEGATIVE (NEGATIVE) 07/21/21 15:21 Ur Propoxyphene Screen NEGATIVE (NEGATIVE) 07/21/21 15:21 Acetaminophen < 10 ug/mL (10-30) L 07/21/21 14:59 Ur Barbiturates Screen NEGATIVE (NEGATIVE) 07/21/21 15:21 Ur Tricyclics Screen NEGATIVE (NEGATIVE) 07/21/21 15:21 Ur Phencyclidine Scrn NEGATIVE (NEGATIVE) 07/21/21 15:21 Ur Amphetamine Screen POSITIVE (NEGATIVE) H 07/21/21 15:21 U Methamphetamines Scrn POSITIVE (NEGATIVE) H 07/21/21 15:21 U Benzodiazepines Scrn NEGATIVE (NEGATIVE) 07/21/21 15:21 [place] 0.21 mmol/L 07/21/21 14:59 Urine Cocaine Screen NEGATIVE (NEGATIVE) 07/21/21 15:21 U Cannabinoids Screen NEGATIVE (NEGATIVE) 07/21/21 15:21 Ethyl Alcohol < 5.0 mg/dL 07/21/21 14:59 ABX Reporting Has patient been on IV antibiotics over the past 48 hours?: No Current Medications - Current Medications Current Medications: Active Medications Acetaminophen (Acetaminophen 325 Mg Tablet) 650 mg PO Q4HR PRN PRN Reason: Pain 1 to 4, or Fever Last Admin: 07/24/21 16:51 Dose: 650 mg Bupropion HCl (Bupropion Xl 150 Mg Tablet) 150 mg PO DAILY [facility] Last Admin: 07/24/21 08:15 Dose: 150 mg Clonidine HCl (Clonidine 0.1 Mg Tablet) 0.2 mg PO QPM PRN PRN Reason: Anxiety Last Admin: 07/23/21 01:06 Dose: 0.2 mg Enoxaparin Sodium (Enoxaparin 40 Mg/0.4 Ml Syringe) 40 mg SUBQ DAILY [facility] Last Admin: 07/24/21 08:15 Dose: 40 mg Ibuprofen (Ibuprofen 600 Mg Tablet) 600 mg PO Q6HR PRN PRN Reason: Pain 1 to 4 Last Admin: 07/24/21 16:51 Dose: 600 mg Levothyroxine Sodium (Levothyroxine 100 Mcg Tablet) 200 mcg PO QDAC [facility] Last Admin: 07/24/21 05:30 Dose: 200 mcg Lidocaine (Lidocaine Patch 5%) 1 patch TOP DAILY PRN PRN Reason: PAIN Last Admin: 07/24/21 13:00 Dose: 1 patch Ondansetron HCl (Ondansetron Odt 4 Mg Tablet) 4 mg TL Q6HR PRN PRN Reason: Nausea / Vomiting Last Admin: 07/23/21 01:06 Dose: 4 mg Ondansetron HCl (Ondansetron 4 Mg/2 Ml Vial) 4 mg IVP Q6HR PRN PRN Reason: Nausea / Vomiting Last Admin: 07/23/21 08:42 Dose: 4 mg Polyethylene Glycol (Polyethylene Glycol 3350 17 Gm Packet) 17 gm PO DAILY [facility] Last Admin: 07/24/21 08:15 Dose: 17 gm Sertraline HCl (Sertraline 50 Mg Tablet) 50 mg PO DAILY [facility] Last Admin: 07/24/21 08:15 Dose: 50 mg Sodium Chloride (Sodium Chloride Flush 0.9% 10 Ml Syringe) 10 ml IVP PRN PRN PRN Reason: NEEDED PER PROVIDER ORDERS Sodium Chloride (Sodium Chloride Flush 0.9% 10 Ml Syringe) 10 ml IVP 0100,0900,1700 [facility] Last Admin: 07/24/21 08:15 Dose: Not Given Trazodone HCl (Trazodone 50 Mg Tablet) 100 mg PO QPM [facility] Last Admin: 07/23/21 20:58 Dose: 100 mg Levothyroxine Sodium [Synthroid] 200 mcg PO QDAC 07/21/21 Sertraline [Zoloft] 50 mg PO DAILY 07/21/21 Trazodone HCl 100 mg PO QPM 07/21/21 buPROPion HCL [Bupropion Xl] 150 mg PO DAILY 07/21/21 cloNIDine [Catapres] 0.2 mg PO QPM PRN 07/21/21
[2021-07-24] MEDS: IBUPROFEN 600 MG TABLET PO PRN (16:51)
[2021-07-24 16:56] VITALS: BP 151/96
[2021-07-24] MEDS: cloNIDine 0.1 MG TABLET PO PRN (17:45)
--- NOTE | 2021-07-24 17:52 | Discharge Plan ---
Discharge Plan Problem Reviewed?: Yes Disposition: Home Health Service Condition: Stable Prescriptions: buPROPion HCL [Bupropion Xl] 150 mg PO DAILY #4 tab cloNIDine [Catapres] 0.2 mg PO QPM PRN #4 tab PRN Reason: Anxiety Lidocaine Patch 5% [Lidoderm Patch] 1 patch TOP DAILY PRN #3 patch PRN Reason: Pain Levothyroxine Sodium [Synthroid] 200 mcg PO QDAC #4 tab Trazodone HCl 100 mg PO QPM #2 tab Sertraline [Zoloft] 50 mg PO DAILY #4 tab Diet: Regular Activity Restrictions: Activity as Tolerated Shower Restrictions: No (fall precaution) Instruction Topics: Lidocaine dermal patch Health Concerns: You had PT/OT evaluation and treatment. Home health PT/OT is planned to arrange for you. you may call and see your PCP to refill your home medications. You may followup with orthopedics to manage your lumbar spine stenosis. As we discussed, you may return to ER or call 911 for help if your symptoms return or worsen. Plan of Treatment: as the above Care Goals: Stabilization and improvement of your medical conditions Assessment: Discussed the care plan with you, answered your questions, you understood and agreed. No Smoking: If you smoke, Please STOP! Call for help.
--- NOTE | 2021-07-24 18:26 | DISCHARGE SUMMARY ---
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 PT evaluated and treated for pt, and recommended home health which plan to arrange for pt. pt was educated for prevention of fall. (2) Altered mental status resolved. pt is alert and oriented plus 4 (3) Methamphetamine use advise pt quit illicit drug usage (4) Mood disorder stable, resume her home meds. However pt state she did not have any her home meds, refill but advised pt call her PCP to prescribe her home medications for her. pt clearly verbally states to me that she does not have suicide ideation or attempt. (5) Hyponatremia resolved. (6)hypothyroidism slight elevated TSH but normal arrange T4, resume home synthroid. (7) Chest pain pt initially complain of chest pain but later she reported "it actually is my anxiety." she report her chest pain is located at middle of chest and reproducible. troponin is 3.8 and is negative for acute CA. pt has no hx of HTN, DM, her age is 41, pt has lower risk for CAD. Advise pt if she still feel chest pain, return to ER. (8)back pain pt report back pain. pt is prescribed Lidocaine patch PRN. CT of lumbar spine show moderate to severe bilateral foraminal stenosis. pt had normal neurovasclular examination at distal bilateral lower extremities. pt report normal patter for her urination and bowel movement. home health PT/OT is planned for pt, pt may followup with orthopedics as out-pt - HPI History of Present Illness: refer from Mr. Oliver's HPI for pt on 07/21/21 A 41 year old female presents from the emergency department for methamphetamine intoxication and altered mental status. The patient was found unresponsive and was carried to a personal vehicle and brought to the emergency department by her friend, who is supporting her through her divorce. A urine tox screen in the emergency department was positive for methamphetamine and a chest radiograph demonstrated borderline cardiomegaly. The patient has taken sertraline, bupropion, and lithium in the past. Multiple doses of naloxone were administered in the emergency department with spontaneous eye opening after receiving naloxone but was still nonverbal. GCS flucatuated after administration and multiple doses were given in the ED. The patient reports restlessness, depression, and muscle spasm, but denies other all other ROS. The patient reports that she is sad enough to hurt herself, though her actions were not intentional. - ALLERGIES Allergies/Adverse Reactions: Allergies Allergy/AdvReac Type Severity Reaction Status Date / Time Penicillins Allergy Unknown Verified 07/21/21 14:57 - MEDICATIONS Home Medications: Ambulatory Orders Medication Instructions Recorded Confirmed Levothyroxine Sodium [Synthroid] 200 mcg PO QDAC #4 tab 07/24/21 Lidocaine Patch 5% [Lidoderm Patch] 1 patch TOP DAILY PRN #3 patch 07/24/21 Sertraline [Zoloft] 50 mg PO DAILY #4 tab 07/24/21 Trazodone HCl 100 mg PO QPM #2 tab 07/24/21 buPROPion HCL [Bupropion Xl] 150 mg PO DAILY #4 tab 07/24/21 cloNIDine [Catapres] 0.2 mg PO QPM PRN #4 tab 07/24/21 - PHYSICAL EXAM AT DISCHARGE General Appearance: positive: No acute distress, Alert. negative: Lethargic Eyes Bilateral: positive: Normal inspection, No lid inflammation ENT: positive: ENT inspection nml, No signs of dehydration. negative: Purulent nasal drainage Neck: positive: Nml inspection, Trachea midline. negative: Tracheal deviation Respiratory: positive: Chest non-tender, No respiratory distress. negative: Wheezes, Rales Cardiovascular: positive: Regular rate & rhythm, No murmur. negative: Tachycardia, Bradycardia, Systolic murmur Peripheral Pulses: positive: 2+ Abdomen: positive: Non-tender, Nml bowel sounds, No distention. negative: Tenderness Back: positive: Nml inspection Skin: positive: Color nml, Warm, Dry. negative: Cyanosis Extremities: positive: Non-tender, Full ROM, Nml appearance Neurologic/Psychiatric: positive: Oriented x3, Motor nml, Sensation nml. negative: Weakness, Sensory loss, Facial droop, Slurred/abnml speech, Depressed mood/affect - LABS Result Diagrams: 07/24/21 05:33 07/24/21 05:33 - FOLLOW UP Follow Up: You had PT/OT evaluation and treatment. Home health PT/OT is planned to arrange for you. you may call and see your PCP to refill your home medications. You may followup with orthopedics to manage your lumbar spine stenosis. As we discussed, you may return to ER or call 911 for help if your symptoms return or worsen. - TIME SPENT Time Spent in Discharge (Minutes): 30
== END 2021-07-24 19:18 | disposition home health service (06) ==
LOC: ED 14:41 → MS2 19:51
PROVIDERS: ADMIT Specialist; ATTEND Nurse Practitioner Gerontology
DX: F15.129 Other stimulant abuse with intoxication, unspecified (principal); R40.2422 Glasgow coma scale score 9-12, at arrival to emergency department; R26.81 Unsteadiness on feet; F39 Unspecified mood [affective] disorder; E87.1 Hypo-osmolality and hyponatremia; E03.9 Hypothyroidism, unspecified; R07.9 Chest pain, unspecified; F41.9 Anxiety disorder, unspecified; M54.9 Dorsalgia, unspecified; E11.9 Type 2 diabetes mellitus without complications; I11.9 Hypertensive heart disease without heart failure; F32.A Depression, unspecified; G47.30 Sleep apnea, unspecified; Z20.822 Contact with and (suspected) exposure to COVID-19; M48.061 Spinal stenosis, lumbar region without neurogenic claudication
CPT/HCPCS: 36415; 51701; 70450; 71045; 72131; 80048; 80053; 80178; 80306; 80307; 80320; 80329; 81003; 81025; 83690; 83880; 84436; 84443; 84484; 85025; 87633; 93005; 96361; 96365; 96366; 96372; 96375; 96376; 97162; 97165; 97530; 97535; 99285; A9270; G0378; J1650; J2060; J7120; Q0162; 81001; 87086

== ENCOUNTER 2021-07-27 00:33 | Emergency (ER) | payer OTHER ==
--- OUTSIDE RECORDS SUMMARY | 2021-07-27 00:56 | EXTERNAL MEDICAL SUMMARY RPT | Continuity of Care Document ---
:1980 Author Organization [place] Address [address] [place] [address] Phone Allergies No information. Encounters No information. Medications No information. Problems date description facility [id number] abd pressure,neck pain [facility] [id number] Nausea [facility] [id number] Headache [facility] [id number] EMS [facility] [id number] Abdominal Pain [facility] [id number] ear aches [facility] Results No information.
--- NOTE | 2021-07-27 04:27 | ED Physician Documentation ---
History of Present Illness - Stated complaint Stated Complaint: REAR END PX - Chief complaint Chief Complaint: General - History obtained from History obtained from: Other (patient does not provide any contribution to HPI/ROS (see narrative below)) - History of Present Illness Timing: Unknown - Additonal information Additional information: on my attempts at HPI/ROS, patient makes no eye contact, crying through most of the encounter. She does not answer any of my questions (neither verbally nor with gestures or head shake/nod). There is a friend at bedside who says patient has hemorrhoid pain. When I ask patient about this, she continues the same behaviors (crying, not acknowledging my questions). Review of Systems Unable to obtain: Uncooperative PD PAST MEDICAL HISTORY - Past Medical History Past Medical History: Yes Cardiovascular: Hypertension, Other Respiratory: Sleep apnea Endocrine/Autoimmune: HyPOthyroidism Psych: Depression, Anxiety - Past Surgical History Past Surgical History: Yes General: Other HEENT: Tonsil/Adenoidectomy - Present Medications Home Medications: Ambulatory Orders Medication Instructions Recorded Confirmed Levothyroxine Sodium [Synthroid] 200 mcg PO QDAC #4 tab 07/24/21 Lidocaine Patch 5% [Lidoderm Patch] 1 patch TOP DAILY PRN #3 patch 07/24/21 Sertraline [Zoloft] 50 mg PO DAILY #4 tab 07/24/21 Trazodone HCl 100 mg PO QPM #2 tab 07/24/21 buPROPion HCL [Bupropion Xl] 150 mg PO DAILY #4 tab 07/24/21 cloNIDine [Catapres] 0.2 mg PO QPM PRN #4 tab 07/24/21 - Allergies Allergies/Adverse Reactions: Allergies Allergy/AdvReac Type Severity Reaction Status Date / Time Penicillins Allergy Unknown Verified 07/21/21 14:57 - Social History Does the pt smoke?: No Smoking Status: Never smoker Does the pt drink ETOH?: No Does the pt have substance abuse?: Yes Substance Use and Type: Meth - Immunizations Immunizations are current?: Yes - POLST Patient has POLST: No POLST Status: Full Code PD ED PE NORMAL - Vitals Vital signs reviewed: Yes - General General: Well developed/nourished, Other (crying throughout most of this encounter; no eye contact. cannot ascertain level of orientation) - Neck Neck: Supple, no meningeal sign - Cardiac Cardiac: No murmur - Respiratory Respiratory: No respiratory distress, Clear bilaterally - Abdomen Abdomen: Soft, Non tender PD ED PE EXPANDED - Cardiac Cardiac: Tachy, Regular Rhythm Results - Vitals Vitals: Vital Signs - 24 hr 07/27/21 07/27/21 00:39 09:40 Temperature 36.6 C Heart Rate 108 H 90 Respiratory 20 Rate Blood Pressure 144/109 H 132/88 H O2 Saturation 99 98 Oxygen O2 Source Room air - Labs Labs: Laboratory Tests 07/27/21 07/27/21 07/27/21 05:35 05:35 05:35 WBC 6.1 RBC 5.14 Hgb 14.3 Hct 42.3 MCV 82.3 MCH 27.8 MCHC 33.8 RDW 14.1 Plt Count 232 MPV 10.3 Neut # (Auto) 3.5 Lymph # (Auto) 1.7 Norman # (Auto) 0.6 Eos # (Auto) 0.2 Baso # (Auto) 0.0 Absolute Nucleated RBC 0.00 Nucleated RBC % 0.0 Sodium 138 Potassium 3.9 Chloride 101 Carbon Dioxide 26 Anion Gap 11.0 BUN 9 Creatinine 0.7 Estimated GFR (MDRD) 93 Glucose 104 H Calcium 9.3 Total Bilirubin 0.8 AST 37 ALT 27 Alkaline Phosphatase 44 Total Protein 7.7 Albumin 4.2 Globulin 3.5 Albumin/Globulin Ratio 1.2 Lipase 41 TSH 11.65 H Urine Color Urine Clarity Urine pH Ur Specific [place] Urine Protein Urine Glucose (UA) Urine Ketones Urine Occult Blood Urine Nitrite Urine Bilirubin Urine Urobilinogen Ur Leukocyte Esterase Urine RBC Urine WBC Ur Squamous Epith Cells Urine Bacteria Urine Mucus Ur Microscopic Review Urine Culture Comments Urine HCG, Qual Urine Opiates Screen Ur Oxycodone Screen Urine Methadone Screen Ur Propoxyphene Screen Ur Barbiturates Screen Ur Tricyclics Screen Ur Phencyclidine Scrn Ur Amphetamine Screen U Methamphetamines Scrn U Benzodiazepines Scrn Urine Cocaine Screen U Cannabinoids Screen Ethyl Alcohol < 5.0 07/27/21 05:52 WBC RBC Hgb Hct MCV MCH MCHC RDW Plt Count MPV Neut # (Auto) Lymph # (Auto) Norman # (Auto) Eos # (Auto) Baso # (Auto) Absolute Nucleated RBC Nucleated RBC % Sodium Potassium Chloride Carbon Dioxide Anion Gap BUN Creatinine Estimated GFR (MDRD) Glucose Calcium Total Bilirubin AST ALT Alkaline Phosphatase Total Protein Albumin Globulin Albumin/Globulin Ratio Lipase TSH Urine Color YELLOW Urine Clarity HAZY Urine pH 6.5 Ur Specific [place] 1.020 Urine Protein NEGATIVE Urine Glucose (UA) NEGATIVE Urine Ketones NEGATIVE Urine Occult Blood LARGE H Urine Nitrite NEGATIVE Urine Bilirubin NEGATIVE Urine Urobilinogen 1 (NORMAL) Ur Leukocyte Esterase NEGATIVE Urine RBC 6-10 H Urine WBC 0-3 Ur Squamous Epith Cells MOD Squamous H Urine Bacteria Few Urine Mucus Marked Strands Ur Microscopic Review INDICATED Urine Culture Comments NOT INDICATED Urine HCG, Qual NEGATIVE Urine Opiates Screen NEGATIVE Ur Oxycodone Screen NEGATIVE Urine Methadone Screen NEGATIVE Ur Propoxyphene Screen NEGATIVE Ur Barbiturates Screen NEGATIVE Ur Tricyclics Screen NEGATIVE Ur Phencyclidine Scrn NEGATIVE Ur Amphetamine Screen POSITIVE H U Methamphetamines Scrn POSITIVE H U Benzodiazepines Scrn NEGATIVE Urine Cocaine Screen NEGATIVE U Cannabinoids Screen NEGATIVE Ethyl Alcohol PD MEDICAL DECISION MAKING - ED course Complexity details: reviewed old records, reviewed results, re-evaluated patient, considered differential ED course: patient provides no answers to any of my questions; she does not verbalize at all except crying, and does not make gestures or motions to provide any answers to my questions. Patient was T+R from this ED last month for c/o hemorrhoid pain with other concerns that resulted in w/u including blood tests and CT A/P without specific findings (abnormal endometrium on CT, advised to follow-up; large but non- thrombosed hemorroid on exam). She was admitted to [facility] 07/21 for AMS, discharged 07/24. [facility]ACO form reflects 14 [facility] ED visits over past 12 months to 4 different EDs. In June 2021, she had four ED visits to 3 different EDs. Basic blood tests and UA/UDS ordered and care of patient turned over to Dr. Ramirez at end of my shift pending reevaluation
[2021-07-27 05:42] LABS: BASOPHILS % (AUTO) 0.7 %; EOSINOPHILS # (AUTO) 0.2 10^3/uL (0.0-0.7); EOSINOPHILS % (AUTO) 3.5 %; HCT - HEMATOCRIT 42.3 % (37.0-47.0); HGB - HEMOGLOBIN 14.3 g/dL (12.0-16.0); LYMPHOCYTES # (AUTO) 1.7 10^3/uL (1.5-3.5); LYMPHOCYTES % (AUTO) 28.5 %; MEAN CORPUSCULAR HEMOGLOBIN 27.8 pg (27.0-31.0); MEAN CORPUSCULAR HGB CONC 33.8 g/dL (32.0-36.0); MEAN CORPUSCULAR VOLUME 82.3 fL (81.0-99.0); MEAN PLATELET VOLUME 10.3 fL (7.9-10.8); MONOCYTES # (AUTO) 0.6 10^3/uL (0.0-1.0); MONOCYTES % (AUTO) 9.6 %; NEUTROPHILS # (AUTO) 3.5 10^3/uL (1.5-6.6); NEUTROPHILS % (AUTO) 57.5 %; PLT - PLATELET COUNT 232 10^3/uL (130-450); RED BLOOD COUNT 5.14 10^6/uL (4.20-5.40); RED CELL DISTRIBUTION WIDTH 14.1 % (12.0-15.0); WHITE BLOOD COUNT 6.1 x10^3/uL (4.8-10.8)
[2021-07-27 05:59] LABS: ALBUMIN 4.2 g/dL (3.2-5.5); ALBUMIN/GLOBULIN RATIO 1.2 (1.0-2.2); ALKALINE PHOSPHATASE 44 IU/L (42-121); ALT ALANINE AMINOTRANSFERASE 27 IU/L (10-60); AST ASPARTATE AMINOTRANSFERASE 37 IU/L (10-42); BILIRUBIN,TOTAL 0.8 mg/dL (0.2-1.0); BUN - BLOOD UREA NITROGEN 9 mg/dL (6-20); CALCIUM 9.3 mg/dL (8.5-10.3); CARBON DIOXIDE - CO2 26 mmol/L (21-32); CHLORIDE 101 mmol/L (101-111); CREATININE 0.7 mg/dL (0.4-1.0); ETOH - ETHANOL < 5.0 mg/dL; GFR - MDRD 93 (>89); GLUCOSE 104 mg/dL (70-100); LIPASE 41 U/L (22-51); POTASSIUM 3.9 mmol/L (3.5-5.0); SODIUM 138 mmol/L (135-145); TOTAL PROTEIN 7.7 g/dL (6.7-8.2)
[2021-07-27 06:11] LABS: BILIRUBIN,URINE NEGATIVE (NEGATIVE); GLUCOSE, URINE (UA) NEGATIVE (NEGATIVE); KETONES,URINE (UA) NEGATIVE (NEGATIVE); LEUKOCYTE ESTERASE, URINE NEGATIVE (NEGATIVE); MUDS CUTOFF CONCENTRATIONS CUTOFF CONC BELOW:; NITRITE,URINE NEGATIVE (NEGATIVE); OCCULT BLOOD,URINE LARGE (NEGATIVE); PH,URINE 6.5 PH (5.0-7.5); PROTEIN,URINE NEGATIVE (NEGATIVE); UROBILINOGEN,URINE 1 (NORMAL) E.U./dL (NORMAL)
[2021-07-27 06:19] LABS: CLARITY,URINE HAZY (CLEAR); HCG UR QUAL NEGATIVE
[2021-07-27 06:20] LABS: BACTERIA,URINE Few /HPF (None Seen); MUCUS,URINE Marked Strands; SQUAMOUS EPITHELIAL CELL,UR MOD Squamous (<= Few); WBC,URINE 0-3 /HPF (0-5)
[2021-07-27 06:28] LABS: THC CANNABINOID SCREEN, URINE NEGATIVE (NEGATIVE)
[2021-07-27 06:29] LABS: AMPHETAMINE SCREEN,URINE POSITIVE (NEGATIVE); BARBITURATE SCREEN,UR NEGATIVE (NEGATIVE); BENZODIAZEPINES SCREEN, URINE NEGATIVE (NEGATIVE); COCAINE SCREEN URINE NEGATIVE (NEGATIVE); METHADONE SCREEN, URINE NEGATIVE (NEGATIVE); METHAMPHETAMINES SCREEN, URINE POSITIVE (NEGATIVE); OPIATE SCREEN, URINE NEGATIVE (NEGATIVE); OXYCODONE SCREEN, URINE NEGATIVE (NEGATIVE); PROPOXYPHENE SCREEN, URINE NEGATIVE (NEGATIVE); TRICYCLIC ANTIDEPRESSANT,URINE NEGATIVE (NEGATIVE)
[2021-07-27 16:20] VITALS: BP 139/62
--- NOTE | 2021-07-27 16:57 | ED Physician Documentation ---
ED Addendum - Addendum Addendum: 07/27/21 16:54 41-year-old Yamilet Sandoval presented to the emergency department last night intoxicated on methamphetamine and unable to communicate to us any of her specific needs. This morning at shift change her care is turned over to me by Dr. Neal with the anticipation of metabolism and improvement. She is allowed to metabolize here in the emergency department and approximately 4:30 in the afternoon she begins to ask to go home. She feels much improved and is able to communicate. She communicates that she has significant stress and anxiety and she has taken hydroxyzine for this previously she is wondering if she can get that as well. She does have a problem with some hemorrhoids and she is using what ever preparation she can states that her hemorrhoids are not bothering her at this time. I discussed with the patient the use of hydrocortisone and reduction of hemorrhoids for control. We will E scribe some hydroxyzine to the [facility] in [place] and provide follow-up for the patient at the [facility] primary care in [place]. Impression: Methamphetamine intoxication, hemorrhoids, anxiety chronic. Plan: The patient will follow up with [facility] primary care in [place]. She is given a prescription for hydroxyzine and instructions on care of hemorrhoids.
== END 2021-07-27 17:11 | disposition home or self-care (01) ==
LOC: ED 00:33
DX: K64.9 Unspecified hemorrhoids (principal); F15.129 Other stimulant abuse with intoxication, unspecified; F41.8 Other specified anxiety disorders; I10 Essential (primary) hypertension
CPT/HCPCS: 36415; 80053; 80306; 80320; 81001; 81003; 81025; 83690; 84443; 85025; 87086; 99281; 99283